=== PATIENT | male | born 1965 | race Caucasian/White ===

== ENCOUNTER 2025-01-14 18:12 | Emergency (ER) | payer MEDICAID ==
[~2025-01-14] VITALS: Ht 177.8 cm; Wt 81.8 kg
[2025-01-14 21:50] VITALS: PULSE 61; RESP 18; TEMP 98.8; O2SAT 96
[2025-01-14] MEDS ORDERED: AUG875T PO (22:09)
--- NOTE | 2025-01-14 22:09 | ED.PDOC ---
Eye-HPI HPI Comments C/O OF LEFT LOWER TOOTH PAIN, 07/05 REPORTS TOOTH BROKE "A WHILE BACK." Chief Complaint: Tooth Pain Time Seen by MD: 18:24 Reviewed Notes: Nurses Notes, Medications, Allergies Allergies: Coded Allergies: NO KNOWN ALLERGIES (Unverified , 12/05/15) Home Meds Active Scripts Amoxicillin & Pot Clavulanate (AUGMENTIN TABLET) 875 Mg Tb, 875 MG PO BID PRN for 6 Days, #12 TAB Prov:BERNADINE NAJERA [employer] 01/14/25 Information Source: Patient Mode of Arrival: Ambulatory Past Medical History PAST MEDICAL HISTORY: Denies Surgical History: Denies all surgeries Family History Family History: Reviewed,noncontributory to illness, Unknown Social History Smoker: Non-Smoker Alcohol: Denies ETOH Use Drugs: Denies Drug Use Constitutional: denies: chills, diaphoresis, fatigue, fever, malaise, sweats, weakness, others EENTM: reports: others (DENTAL PAIN); denies: blurred vision, double vision, ear bleeding, ear discharge, ear drainage, ear pain, ear ringing, eye pain, eye redness, hearing loss, mouth pain, mouth swelling, nasal discharge, nose bleeding, nose congestion, nose pain, photophobia, tearing, throat pain, throat swelling, voice changes Respiratory: denies: cough, hemoptysis, orthopnea, SOB at rest, shortness of breath, SOB with excertion, stridor, wheezing, others Cardiovascular: denies: chest pain, dizzy spells, diaphoresis, Dyspnea on exertion, edema, irregular heart beat, left arm pain, lightheadedness, palpitations, PND, syncope, others Gastrointestinal: denies: abdomen distended, abdominal pain, blood streaked bowels, constipated, diarrhea, dysphagia, difficulty swallowing, hematemesis, melena, nausea, poor appetite, poor fluid intake, rectal bleeding, rectal pain, vomiting, others Genitourinary: denies: burning, dysuria, flank pain, frequency, hematuria, inc ontinence, penile discharge, penile sore, pain, testicle pain, testicle swelling, urgency, others Neurological: denies: dizziness, fainting, headache, left sided numbness, left sided weakness, numbness, paresthesia, pre-existing deficit, right sided numbness, right sided weakness, seizure, speech problems, tingling, tremors, weakness, others Musculoskeletal: denies: back pain, gout, joint pain, joint swelling, muscle pain, muscle stiffness, neck pain, others Integumetry: denies: bruises, change in color, change in hair/nails, dryness, laceration, lesions, lumps, rash, wounds, others Allergic/Immunocompromised: denies: Difficulty Healing, Frequent Infections, Hives, Itching, others Hematologic/Lymphatic: denies: anemia, blood clots, easy bleeding, easy bruising, swollen glands, others Endocrine: denies: excessive hunger, excessive sweating, excessive thirst, excessive urination, flushing, intolerance to cold, intolerance to heat, unexplained weight gain, unexplained weight loss, others Psychiatric: denies: anxiety, bipolar disorder, depression, hopeless, panic disorder, schizophrenia, sleepless, suicidal, others Physical Exam General Appearance: No Apparent Distress, Normal HEENT: Pharynx Normal, TMs Normal, Other (LEFT LOWER JAW TOOTH NUMBER 46 NOTED CRACKED WITH MODERATE DECAY) Neck: Full Range of Motion, Non-Tender, Normal, Normal Inspection Respiratory: Lungs Clear, No Respiratory Distress, Normal Breath Sounds Cardiovascular: No Edema, No JVD, No Murmur, No Gallop, Normal Peripheral Puls es, Regular Rate/Rhythm Breast Exam: Deferred Gastrointestinal: No Organomegaly, Non Tender, No Pulsatile Mass, Normal Bowel Sounds, Soft Genitalia: Deferred Pelvic: Deferred Rectal: Deferred Extremities: Normal capillary refill, Normal inspection, Normal range of motion, Non-tender, No pedal edema Musculoskeletal : Apperance: Normal Neurologic: Alert, simonizer II-XII nml as Tested, No Motor Deficits, Normal Affect, Normal Mood, No Sensory Deficits Cerebellar Function: Normal Reflexes: Normal Skin: Dry, Normal Color, Warm Lymphatic: No Adenopathy Was a procedure done? Was a procedure done?: No EENT DIFF Eye: N/A Ear: Dental, Pharyngitis X-Ray, Labs, Meds, VS Vital Signs Date Time Temp Pulse Resp B/P (MAP) Pulse Ox O2 Delivery O2 Flow Rate FiO2 01/14/25 23:18 132/76 (94) 01/14/25 21:50 61 18 96 Room Air 01/14/25 21:50 98.8 61 18 162/83 (109) 96 98.8 01/14/25 18:54 98.8 58 18 151/75 (100) 99 98.8 Current Medications Medications (Trade) Dose Ordered Sig/Elliot Route Start Time Stop Time Status Last Admin Benzocaine (Hurricaine [place]) 1 spr ONCE ONCE MT 01/14/25 22:15 01/14/25 22:16 DC 01/14/25 22:56 Ketorolac Tromethamine (Toradol Injection) 60 mg ONCE ONCE IM 01/14/25 22:15 01/14/25 22:16 DC 01/14/25 22:56 Acetaminophen/ Hydrocodone Bitart ([place] 5/325MG Tab) 2 tab ONCE ONCE PO 01/14/25 22:45 01/14/25 22:46 DC 01/14/25 22:55 X-Ray, Labs, Meds, VS Comment Patient given Toradol 60 mg IM and Vicodin 10 mg p.o. reports improvement in pain requesting discharge at this time. Patient also was discharged with Hurricaine spray instructions given. Script antibiotics to patient's pharmacy on file advised to take medications as prescribed side effects discussed. Call dental and make an appointment for resolution. Return precautions given patient indicates understanding and agrees with discharge plan of care. Time of 1ST Reevaluation: 22:09 Reevaluation 1ST: Improved Patient Education/Counseling: Diagnosis, Treatment, Prognosis, Need For Follow Up Family Education/Counseling: Diagnosis, Treatment, Prognosis, Need For Follow Up Departure 1 Departure Time of Disposition: 22:08 Impression: Primary Impression: Dental infection Disposition: 01 HOME / SELF CARE / HOMELESS Condition: Stable e-Prescriptions Amoxicillin & Pot Clavulanate (AUGMENTIN TABLET) 875 Mg Tb 875 MG PO BID PRN for 6 Days, #12 TAB Prov: BERNADINE NAJERA 01/14/25 Discharged With: Significant Other Critical Care Note Critical Care Time?: No Stability Stability form required: No BERNADINE NAJERA Jan 14, 2025 22:09
[2025-01-14] MEDS ORDERED: OXYCODONE W/ ACETAMINOPHEN 5/325MG TABLET PO ONE (22:15)
[2025-01-14] MEDS: HYDROcodone-ACET 5/325MG TAB PO ONE (22:55)
[2025-01-14] MEDS: BENZOCAINE (DENTAL) 20 % SPRAY 60ML MT ONE (22:56)
[2025-01-14] MEDS: KETOROLAC TROMETH 60MG/2ML VIAL IM ONE (22:56)
[2025-01-14 23:18] VITALS: BP 132/76
== END 2025-01-14 23:22 | disposition home or self-care (01) ==
LOC: ER 18:12
DX: K04.7 Periapical abscess without sinus (principal)
CPT/HCPCS: 96372; 99283; J1885

== ENCOUNTER 2025-04-18 10:33 | Inpatient (IN) | payer MEDICAID ==
[~2025-04-18] VITALS: Ht 177.8 cm; Wt 77.5 kg
--- NOTE | 2025-04-18 10:48 | ED.PDOC ---
GI ASSESSMENT HPI Comments This is a 60 year old male accompanied by presenting to the ED with chief complaint of abdominal pain. Patient reports that he has been experiencing 4/10 epigastric abdominal pain with associated nausea and vomiting since this morning. Patient relays that he has vomited twice since this morning. Patient denies any diarrhea, dysuria, fever, chills, chest pain, or SOB. Time Seen by MD: 10:46 Reviewed Notes: Nurses Notes, Medications, Allergies Allergies: Coded Allergies: NO KNOWN ALLERGIES (Unverified , 12/05/15) Information Source: Patient, Spouse Mode of Arrival: Wheelchair Timing: Hours Duration: Since onset Prehospital treatment: None Quality: Aching Vomitus: Watery Stool: Normal Severity: Moderate Recent: None Recent Hx of: None Pain Location: Epigastric Modifying Factors: Nothing Associated sign and symptoms: Nausea, Vomiting, Abdominal Pain Past Medical History PAST MEDICAL HISTORY: Denies Surgical History: Denies all surgeries Family History Family History: Reviewed,noncontributory to illness, Family hx of DM Social History Smoker: Cigarettes Alcohol: Denies ETOH Use Drugs: Marijuana Lives In: Home Constitutional: denies: chills, diaphoresis, fatigue, fever, malaise, sweats, weakness, others EENTM: denies: blurred vision, double vision, ear bleeding, ear discharge, ear drainage, ear pain, ear ringing, eye pain, eye redness, hearing loss, mouth pain, mouth swelling, nasal discharge, nose bleeding, nose congestion, nose pain, photophobia, tearing, throat pain, throat swelling, voice changes, others Respiratory: denies: cough, hemoptysis, orthopnea, SOB at rest, shortness of breath, SOB with excertion, stridor, wheezing, others Cardiovascular: denies: chest pain, dizzy spells, diaphoresis, Dyspnea on exertion, edema, irregular heart beat, left arm pain, lightheadedness, palpitations, PND, syncope, others Gastrointestinal: reports: abdominal pain, nausea, vomiting; denies: abdomen distended, blood streaked bowels, constipated, diarrhea, dysphagia, difficulty swallowing, hematemesis, melena, poor appetite, poor fluid intake, rectal bleeding, rectal pain, others Genitourinary: denies: burning, dysuria, flank pain, frequency, hematuria, incontinence, penile discharge, penile sore, pain, testicle pain, testicle swelling, urgency, others Neurological: denies: dizziness, fainting, headache, left sided numbness, left sided weakness, numbness, paresthesia, pre-existing deficit, right sided numbness, right sided weakness, seizure, speech problems, tingling, tremors, weakness, others Musculoskeletal: denies: back pain, gout, joint pain, joint swelling, muscle p ain, muscle stiffness, neck pain, others Integumetry: denies: bruises, change in color, change in hair/nails, dryness, laceration, lesions, lumps, rash, wounds, others Allergic/Immunocompromised: denies: Difficulty Healing, Frequent Infections, Hives, Itching, others Hematologic/Lymphatic: denies: anemia, blood clots, easy bleeding, easy bruising, swollen glands, others Endocrine: denies: excessive hunger, excessive sweating, excessive thirst, excessive urination, flushing, intolerance to cold, intolerance to heat, unexplained weight gain, unexplained weight loss, others Psychiatric: denies: anxiety, bipolar disorder, depression, hopeless, panic disorder, schizophrenia, sleepless, suicidal, others All Other Systems: Reviewed and Negative Physical Exam General Appearance: Moderate Distress HEENT: Normal ENT Inspection, Pharynx Normal, TMs Normal Neck: Full Range of Motion, Non-Tender, Normal, Normal Inspection Respiratory: Chest Non-Tender, Lungs Clear, No Accessory Muscle Use, No Respiratory Distress, Normal Breath Sounds Cardiovascular: Bradycardia, No Edema, No JVD, No Murmur, No Gallop Breast Exam: Deferred Gastrointestinal: No Organomegaly, No Pulsatile Mass, Normal Bowel Sounds, RLQ, Soft, Tenderness Genitalia: Deferred Pelvic: Deferred Rectal: Deferred Extremities: No calf tenderness, Normal capillary refill, No pedal edema Musculoskeletal : Apperance: Normal Neurologic: Alert, peritoneal dialysis registered nurse II-XII nml as Tested, Motor Weakness, Normal Affect, Normal Mood, No Sensory Deficits Cerebellar Function: Normal Reflexes: Normal Skin: Dry, Pallor, Warm Lymphatic: No Adenopathy EKG EKG : Pulse Rate (adult): 46 [place]: RAD Cardiac Rhythm: SB Block: None Hypertrophy: None ST: Normal Was a procedure done? Was a procedure done?: No GI differential Dx Differential Diagnosis: Gastritis/PUD, Gastroenteritis, Pancreatitis, UTI, Electrolyte Imbalance, Food Poisoning X-Ray, Labs, Meds, VS Vital Signs Date Time Temp Pulse Resp B/P (MAP) Pulse Ox O2 Delivery O2 Flow Rate FiO2 04/18/25 11:39 46 04/18/25 11:23 46 04/18/25 10:43 98.0 46 18 174/82 (112) 100 98.0 Lab Test 04/18/25 11:03 04/18/25 10:56 Range/Units Urine Color Light-yellow Yellow Urine Clarity Clear Clear Urine pH 5.0 5.0-9.0 Urine Specific [place] 1.018 1.001-1.035 Urine Protein Negative Negative Urine Ketones Negative Negative Urine Blood Negative Negative /uL Urine Nitrite Negative Negative Urine Bilirubin Negative Negative Urine Urobilinogen Normal Negative mg/dL Urine Leukocyte Esterase Negative Negative /uL Urine RBC None seen 0 - 3 /hpf Urine Microscopic WBC < 1 0-3 /HPF Urine Squamous Epithelial Cells None seen <5 /hpf Urine Bacteria None seen None Seen /hpf Urine Mucus Few None Seen Urine Glucose Normal Normal mg/dL Urine Opiates Screen Neg NEGATIVE Urine Fentanyl Screen Neg NEGATIVE Urine Barbiturates Screen Neg NEGATIVE Urine Phencyclidine Screen Neg NEGATIVE Urine Amphetamines Screen Neg NEGATIVE Urine Benzodiazepines Screen Neg NEGATIVE Urine Cocaine Screen Neg NEGATIVE Urine Cannabinoids Screen Pos NEGATIVE White Blood Count 11.5 H 4.4-10.8 10^3/uL Red Blood Count 5.40 4.5-5.90 10^6/uL Hemoglobin 16.5 13.5-17.5 g/dL Hematocrit 48.6 41.0-53.0 % Mean Corpuscular Volume 90.0 80.0-100.0 fL Mean Corpuscular Hemoglobin 30.5 28.0-32.0 pg Mean Corpuscular Hemoglobin Concent 33.9 32.0-36.0 g/dL Red Cell Distribution Width 13.5 11.8-14.3 % Platelet Count 218 140-450 10^3/uL Mean Platelet Volume 8.3 6.9-10.8 fL Neutrophils (%) (Auto) 74.6 37.0-80.0 % Lymphocytes (%) (Auto) 16.3 10.0-50.0 % Monocytes (%) (Auto) 6.9 0.0-12.0 % Eosinophils (%) (Auto) 1.8 0.0-7.0 % Basophils (%) (Auto) 0.4 0.0-2.0 % Neutrophils # (Auto) 8.6 1.6-8.6 10 ^3/uL Lymphocytes # (Auto) 1.9 0.4-5.4 10 ^3/uL Monocytes # (Auto) 0.8 0-1.3 10 ^3/uL Eosinophils # (Auto) 0.2 0-0.8 10 ^3/uL Basophils # (Auto) 0 0-0.2 10 ^3/uL Nucleated Red Blood Cells 0.1 % Sodium Level 142 136-145 mmol/L Potassium Level 3.8 3.5-5.1 mmol/L Chloride Level 105 98-107 mmol/L Carbon Dioxide Level 28 20-31 mmol/L Anion Gap 9 5-15 Blood Urea Nitrogen 12 9-23 mg/dL Creatinine 0.91 0.700-1.30 mg/dL Glomerular Filtration Rate Calc 95 >90 mL/min BUN/Creatinine Ratio 13.2 10.0-20.0 Serum Glucose 117 H 74-106 mg/dL Calcium Level 10.7 H 8.7-10.4 mg/dL Troponin I High Sensitivity 3 L </=54 ng/L CBC shows an elevated white blood cell count of 11.5 The chemistry panel is within normal limits The troponin level is negative The patient's glucose is elevated at 117 The urine tox is positive for marijuana The urine test is negative for UTI At this time, the patient is being admitted to the hospitalist The CAT scan of the abdomen and pelvis shows: IMPRESSION: 1. Concentric wall thickening of the proximal transverse colon may reflect mild infectious / inflammatory colitis . At this time, the patient is being started on Flagyl 500 mg IV piggyback The patient is admitted Images Reviewed?: Images reviewed and evaluated by me Time of 1ST Reevaluation: 12:27 Reevaluation 1ST: Unchanged Patient Education/Counseling: Diagnosis, Treatment, Prognosis Family Education/Counseling: No Family Present Additional Information Reviewed patient's previous visit(s): 01/14/25 for dental infection The following tests were ordered, and results were reviewed by me: CBC, BMP, UDS, UA, Troponin, EKG, CT Abd/Pel Additional information was gathered from interviewing the following independent historian: I reviewed and agreed with the following test results read by other provider: CT Abd/Pel I discussed treatments and results with medical personnel and: PATIENT and Comprehensive systems review obtained and negative except for what is stated in the HPI. SEPSIS Sepsis Screen Physician Orders Troponin-I Hs (04/18/25 12:00) Ct Ab Pel Wo Con-No Oral Or Iv (04/18/25 10:46) Heplock Iv (04/18/25 10:46) Harp Regulator (04/18/25 10:46) Blood Pressure (04/18/25 10:46) Pulse Oximetry (04/18/25 10:46) Electrocardigram (04/18/25 10:46) Troponin-I Hs (04/18/25 13:46) Electrocardigram (04/18/25 11:46) Electrocardigram (04/18/25 13:46) Vital Signs Date Time Temp Pulse Resp B/P (MAP) Pulse Ox O2 Delivery O2 Flow Rate FiO2 04/18/25 11:39 46 04/18/25 11:23 46 04/18/25 10:43 98.0 46 18 174/82 (112) 100 98.0 Laboratory Tests Test 04/18/25 10:56 White Blood Count 11.5 10^3/uL (4.4-10.8) H Departure 1 Departure Time of Disposition: 12:28 Impression: Primary Impression: Intractable abdominal pain Additional Impression: Acute colitis Disposition: ADMITTED INPATIENT Admit to: Med Surg Condition: Fair Critical Care Note Critical Care Time?: No Stability Stability form required: Yes Unstable for transfer: ED Physician Assesment (Clinical assesment) Heart Score Heart Score: Heart Score Response (Comments) Value History N/A 0 EKG N/A 0 Age N/A 0 Risk Factors N/A 0 Troponin N/A 0 Total 0 I personally scribed for CHENTE REID MD ([email or web address]) on 04/18/25 at 10:48. Electronically submitted by Mario Davila ([email or web address]). I personally scribed for CHENTE REID MD ([email or web address]) on 04/18/25 at 10:49. Electronically submitted by Mario Davila ([email or web address]). I personally scribed for CHENTE REID MD ([email or web address]) on 04/18/25 at 11:39. Electronically submitted by Mario Davila ([email or web address]). CHENTE REID MD Apr 18, 2025 10:48
[2025-04-18 11:05] LABS: Urine Bacteria None Seen /hpf (None Seen)
[2025-04-18 11:21] LABS: Urine Blood Negative /uL (Negative); Urine Clarity Clear (Clear); Urine Color Light-Yellow (Yellow); Urine Mucus FEW (None Seen); Urine Protein, UAD Negative (Negative); Urine Specific Gravity 1.018 (1.001-1.035); Urine Squamous Epithelial Cell None Seen /hpf (<5); Urine Urobilinogen Normal (Negative)
[2025-04-18 11:24] LABS: Cannabinoid Screen, Urine Pos (NEGATIVE)
[2025-04-18 11:26] LABS: Urine WBC < 1 /HPF (0-3)
[2025-04-18 11:27] LABS: Amphetamine Screen, Urine Neg (NEGATIVE); Barbiturate Scree,Urine Neg (NEGATIVE); Benzodiazephine Screen, Urine Neg (NEGATIVE); Cocaine Screen, Urine Neg (NEGATIVE); Opiate Scree,Urine Neg (NEGATIVE); Phencyclidine Screen, Urine Neg (NEGATIVE)
[2025-04-18 11:33] LABS: Chloride 105 mmol/L (98-107); Potassium 3.8 mmol/L (3.5-5.1); Sodium 142 mmol/L (136-145)
[2025-04-18 11:34] LABS: Anion Gap 9 (5-15); Carbon Dioxide 28 mmol/L (20-31)
[2025-04-18 11:36] LABS: Basophils # (auto) 0 10 ^3/uL (0-0.2); Basophils % (auto) 0.4 % (0.0-2.0); Eosinophils # (auto) 0.2 10 ^3/uL (0-0.8); Eosinophils % (auto) 1.8 % (0.0-7.0); Hematocrit 48.6 % (41.0-53.0); Hemoglobin 16.5 g/dL (13.5-17.5); Lymphocytes # (auto) 1.9 10 ^3/uL (0.4-5.4); Lymphocytes % (auto) 16.3 % (10.0-50.0); Mean Corpuscular Hemoglobin 30.5 pg (28.0-32.0); Mean Corpuscular Hgb Conc. 33.9 g/dL (32.0-36.0); Monocytes # (auto) 0.8 10 ^3/uL (0-1.3); Monocytes % (auto) 6.9 % (0.0-12.0); Neutrophils # (auto) 8.6 10 ^3/uL (1.6-8.6); Neutrophils % (auto) 74.6 % (37.0-80.0); Nucleated Red Blood Cells % 0.1 %; Platelet Count (auto) 218 10^3/uL (140-450); Red Cell Distribution Width 13.5 % (11.8-14.3); White Blood Cell 11.5 10^3/uL (4.4-10.8)
[2025-04-18 11:39] LABS: Calcium 10.7 mg/dL (8.7-10.4)
[2025-04-18 11:40] LABS: BUN/Creatinine Ratio 13.2 (10.0-20.0); Blood Urea Nitrogen 12 mg/dL (9-23)
[2025-04-18 11:43] LABS: Glucose 117 mg/dL (74-106)
--- NOTE | 2025-04-18 11:50 | DVH ---
Exam: CT CT AB PEL WO CON-NO ORAL OR IV History: pain Comparison Study: None Technique: Multidetector spiral CT of the abdomen was performed from lung bases to pubic symphysis. Imaging was performed without IV contrast. Axial, coronal and sagittal multiplanar reformats were ob tained from the axial data set by the technologist. Radiation Dose : 1. Abdomen/Pelvis: CTDIvol 9.57 mGy, DLP 545.57 mGy*cm. Findings: Evaluation of solid organs is limited due to lack of intravenous contrast use. Lung Bases: No acute or significant lung base finding. Normal heart size. No pleural or pericardial effusion. Liver: The liver is normal in size. No focal lesions. Gallbladder and Biliary Tree: Unremarkable Spleen: Unremarkable Pancreas: The pancreas is grossly normal in appearance. Adrenal Glands: Unremarkable Kidneys: Kidneys are grossly normal without calculi or hydronephrosis. Bladder: Grossly unremarkable for degree of distention. Bowel: The stomach is grossly normal in appearance. Concentric wall thickening of the proximal transv erse colon may reflect mild infectious / inflammatory colitis . The appendix is not visualized; howev er, no secondary findings of acute appendicitis identified. Ascites: Absent Lymphadenopathy: No mesenteric, retroperitoneal or periportal lymphadenopathy. Abdominal Wall and Mesentery: Unremarkable. Vasculature: The visualized abdominal aorta is normal in size and caliber. Evaluation of abdominal a nd pelvic vessels is limited due to lack of intravenous contrast. Pelvic Organs: Unremarkable Musculoskeletal: No aggressive focal bony lesions, acute fractures or dislocation. IMPRESSION: 1. Concentric wall thickening of the proximal transverse colon may reflect mild infectious / inflamma tory colitis . Radiation optimization: All CT scans at this facility use at least one of these dose optimization valeria hniques: automated exposure control mA and/or kV adjustment per patient size (includes targeted exam s where dose is matched to clinical indication) or iterative reconstruction.
[2025-04-18] MEDS ORDERED: ACETAMINOPHEN 325 MG TAB PO PRN (15:00)
[2025-04-18] MEDS ORDERED: SODIUM CHLORIDE 0.9% 1,000 ML IV SCH (15:00)
[2025-04-18] MEDS ORDERED: DOCUSATE SOD 100 MG CAP PO PRN (15:00)
--- NOTE | 2025-04-18 16:37 | DVHHP2 ---
History of Present Illness Reason for Visit: Acute colitis History of Present Illness The patient is a 60-year-old male who denies past medical history presented to [facility] [place] with complaint of acute abdominal pain. Patient reports he has been experiencing epigastric abdominal pain for the past two days, associated with nausea, vomiting, getting worse today that prompted this visit. Patient was seen and evaluated in the ED, laboratory data shows WBC 11.5, platelets 218, sodium 142, potassium 3.8, BUN 12, creatinine 0.91, glucose 117, calcium 10.7, troponin 3, blood pressure 174/82 trending down to 115/73, heart rate 46, temperature 98.0 F, O2 saturation 99% on room air. Abdomen/pelvis CT revealing concentric wall thickening of the proximal transverse colon may reflect mild infectious/inflammatory colitis. Patient was started on IV antibiotic regimen Rocephin, please see medication orders section in the computer. On my assessment, patient denied chest pain, no headache, no dizziness, no diaphoresis, no shortness of breath, no abdominal pain, nausea, or vomiting at this moment, no fever, no chills. Patient was admitted for further evaluation and medical management. Past Medical History Denies past medical history Past Surgical History Denies all surgeries Family History Reviewed, noncontributory to the management of this case. Past Social History The patient lives at home, smokes cigarettes, denies alcohol use, uses marijuana. Review of Systems Constitutional: No: Fever, Chills, Sweats, Weakness, Malaise, Other Eyes: No: Pain, Vision change, Conjunctivae inflammation, Eyelid inflammation, Other, Redness ENT: No: Ear pain, Ear discharge, Nose pain, Nose discharge, Nose congestion, Mouth pain, Mouth swelling, Throat pain, Throat swelling, Other Respiratory: No: Cough, Dry, Shortness of breath, SOB with excertion, Wheezing, Hemoptysis, Pleuritic Pain, Sputum, Wheezing, Other Cardiovascular: No: Chest Pain, Palpitations, Orthopnea, Paroxysmal Noc. Dyspnea, Edema, Lt Headedness, Other Gastrointestinal: Nausea, Vomiting, Abdominal Pain; No: Diarrhea, Constipation, Melena, Hematochezia, Other Genitourinary: No Dysuria, No Frequency, No Incontinence, No Hematuria, No Retention, No Other Musculoskeletal: No: other, neck pain, shoulder pain, arm pain, back pain, hand pain, leg pain, foot pain Skin: No: Rash, Lesions, Jaundice, Bruising, Other Neurological: No: Weakness, Numbness, Incoordination, Change in speech, Confusion, Seizures, Other Allergies: Coded Allergies: NO KNOWN ALLERGIES (Unverified , 12/05/15) Medications Current Medications Medications Dose Ordered Sig/Elliot Route Start Time Stop Time Status Last Admin Dose Admin Ceftriaxone Sodium 50 ml @ 100 mls/hr DAILY@09 IV 04/19/25 09:00 Metronidazole 100 ml @ 100 mls/hr Q8HR IV 04/18/25 22:00 Sodium Chloride 1,000 ml @ 60 mls/hr [id number] IV 04/18/25 15:00 Acetaminophen/ Hydrocodone Bitart 1 tab Q4HP PRN PO 04/18/25 15:00 Ondansetron HCl 4 mg Q4HP PRN IV 04/18/25 15:00 Docusate Sodium 100 mg BIDPRN PRN PO 04/18/25 15:00 Acetaminophen 650 mg Q6HP PRN PO 04/18/25 15:00 Exam Vital Signs Vital Signs Date Time Temp Pulse Resp B/P (MAP) Pulse Ox O2 Delivery O2 Flow Rate FiO2 04/18/25 15:32 97.9 40 115/73 (87) 100 97.9 04/18/25 10:43 18 General Appearance: Alert, Oriented X3, Cooperative, No acute distress HEENT: Atraumatic, PERRLA, EOMI, Mucous membr. moist/pink Respiratory: Clear to auscultation, Normal air movement Cardiovascular: Regular rate, Normal S1, Normal S2, No murmurs Abdominal: Normal bowel sounds, Soft, No hepatospenomegaly, No masses, Other (Reports tenderness) Extremities: No clubbing, No cyanosis, No edema, Normal pulses, No te nderness/swelling Skin: No rashes, No breakdown, No significant lesion Neuro: Normal gait, Normal speech, Strength at 5/5 X4 ext, Normal tone, Sensation intact, Cranial nerves 3-12 NL, Reflexes 2+ Psych/Mental Status: Mental status NL, Mood NL Labs/Xrays Labs Test 04/18/25 13:13 04/18/25 11:03 04/18/25 10:56 Range/Units Troponin I High Sensitivity < 3 L </=54 ng/L Urine Color Light-yellow Yellow Urine Clarity Clear Clear Urine pH 5.0 5.0-9.0 Urine Specific [place] 1.018 1.001-1.035 Urine Protein Negative Negative Urine Ketones Negative Negative Urine Blood Negative Negative /uL Urine Nitrite Negative Negative Urine Bilirubin Negative Negative Urine Urobilinogen Normal Negative mg/dL Urine Leukocyte Esterase Negative Negative /uL Urine RBC None seen 0 - 3 /hpf Urine Microscopic WBC < 1 0-3 /HPF Urine Squamous Epithelial Cells None seen <5 /hpf Urine Bacteria None seen None Seen /hpf Urine Mucus Few None Seen Urine Glucose Normal Normal mg/dL Urine Opiates Screen Neg NEGATIVE Urine Fentanyl Screen Neg NEGATIVE Urine Barbiturates Screen Neg NEGATIVE Urine Phencyclidine Screen Neg NEGATIVE Urine Amphetamines Screen Neg NEGATIVE Urine Benzodiazepines Screen Neg NEGATIVE Urine Cocaine Screen Neg NEGATIVE Urine Cannabinoids Screen Pos NEGATIVE White Blood Count 11.5 H 4.4-10.8 10^3/uL Red Blood Count 5.40 4.5-5.90 10^6/uL Hemoglobin 16.5 13.5-17.5 g/dL Hematocrit 48.6 41.0-53.0 % Mean Corpuscular Volume 90.0 80.0-100.0 fL Mean Corpuscular Hemoglobin 30.5 28.0-32.0 pg Mean Corpuscular Hemoglobin Concent 33.9 32.0-36.0 g/dL Red Cell Distribution Width 13.5 11.8-14.3 % Platelet Count 218 140-450 10^3/uL Mean Platelet Volume 8.3 6.9-10.8 fL Neutrophils (%) (Auto) 74.6 37.0-80.0 % Lymphocytes (%) (Auto) 16.3 10.0-50.0 % Monocytes (%) (Auto) 6.9 0.0-12.0 % Eosinophils (%) (Auto) 1.8 0.0-7.0 % Basophils (%) (Auto) 0.4 0.0-2.0 % Neutrophils # (Auto) 8.6 1.6-8.6 10 ^3/uL Lymphocytes # (Auto) 1.9 0.4-5.4 10 ^3/uL Monocytes # (Auto) 0.8 0-1.3 10 ^3/uL Eosinophils # (Auto) 0.2 0-0.8 10 ^3/uL Basophils # (Auto) 0 0-0.2 10 ^3/uL Nucleated Red Blood Cells 0.1 % Sodium Level 142 136-145 mmol/L Potassium Level 3.8 3.5-5.1 mmol/L Chloride Level 105 98-107 mmol/L Carbon Dioxide Level 28 20-31 mmol/L Anion Gap 9 5-15 Blood Urea Nitrogen 12 9-23 mg/dL Creatinine 0.91 0.700-1.30 mg/dL Glomerular Filtration Rate Calc 95 >90 mL/min BUN/Creatinine Ratio 13.2 10.0-20.0 Serum Glucose 117 H 74-106 mg/dL Calcium Level 10.7 H 8.7-10.4 mg/dL PATIENT: JEREMI CARRREA ACCT: [id number] UNIT: [id number] : 1965 LOC: ER ROOM / BED: / AGE / SEX: 60 / M ADM STATUS: REG ER SERVICE 1046 ORDERING PHYSICIAN: CHENTE REID MD PROCEDURE(s): ABPL - CT AB PEL WO CON-NO ORAL OR IV REASON: pain ORDER NUMBER(s): [id number], ACCESSION NUMBER(s): [id number] Exam: CT CT AB PEL WO CON-NO ORAL OR IV History: pain Comparison Study: None Technique: Multidetector spiral CT of the abdomen was performed from lung bases to pubic symphysis. Imaging was performed without IV contrast. Axial, coronal and sagittal multiplanar reformats were obtained from the axial data set by the technologist. Radiation Dose: 1. Abdomen/Pelvis: CTDIvol 9.57 mGy, DLP 545.57 mGy*cm. Findings: Evaluation of solid organs is limited due to lack of intravenous contrast use. Lung Bases: No acute or significant lung base finding. Normal heart size. No pleural or pericardial effusion. Liver: The liver is normal in size. No focal lesions. Gallbladder and Biliary Tree: Unremarkable Spleen: Unremarkable Pancreas: The pancreas is grossly normal in appearance. Adrenal Glands: Unremarkable Kidneys: Kidneys are grossly normal without calculi or hydronephrosis. Bladder: Grossly unremarkable for degree of distention. Bowel: The stomach is grossly normal in appearance. Concentric wall thickening of the proximal transverse colon may reflect mild infectious/inflammatory colitis. The appendix is not visualized; however, no secondary findings of acute appendicitis identified. Ascites: Absent Lymphadenopathy: No mesenteric, retroperitoneal or periportal lymphadenopathy. Abdominal Wall and Mesentery: Unremarkable. Vasculature: The visualized abdominal aorta is normal in size and caliber. Evaluation of abdominal and pelvic vessels is limited due to lack of intravenous contrast. Pelvic Organs: Unremarkable Musculoskeletal: No aggressive focal bony lesions, acute fractures or dislocation. IMPRESSION: 1. Concentric wall thickening of the proximal transverse colon may reflect mild infectious/inflammatory colitis . Assessment/Plan Assessment/Plan Acute colitis Intractable abdominal pain Leukocytosis, unspecified Plan 1. Admit to med surge unit 2. Breathing treatment 3. Pain control management 4. IV antibiotic management 5. Management of fluids and electrolytes 6. Consultation for hospitalist 7. Diagnostic test abdomen/pelvis CT 8. DVT prophylaxis on SCDs 9. Repeat labs CBC, CMP in a.m. 10. Continue with current medical management 11. Treatment plan discussed with patient and RN. Patient verbalized understanding. Plan discussed with: Patient, Other (RN) My Orders Orders - TORIN ROGERS DNP Procedure Category Date Status Time Ceftriaxone 1gm/50ml PHA 04/19/25 In Process D5w (Rocephin) 09:00 Metronidazole PHA 04/18/25 In Process 500mg/100ml (Flagyl 22:00 Allergies AMEE 04/18/25 In Process 14:54 Code Status CODE 04/18/25 Transmitted 14:54 Sodium Chloride 0.9% PHA 04/18/25 In Process 15:00 Oxygen Per Hour RT 04/18/25 Transmitted 14:54 Hydrocodone-Acet PHA 04/18/25 In Process 5/325mg Tab ([place] 15:00 Ondansetron Hcl PHA 04/18/25 In Process (Zofran) 15:00 Docusate Sodium PHA 04/18/25 In Process Capsule (Colace 15:00 Complete Blood Count LAB 04/19/25 Verified 04:00 Comprehensive LAB 04/19/25 Verified Metabolic Panel 04:00 Condition: Serious AMEE 04/18/25 In Process 14:54 Acetaminophen Tablet PHA 04/18/25 In Process (Tylenol Tablet) 15:00 Clear Liq Diet DIET 04/18/25 Transmitted Dinner Bedrest With Bathroom AMEE 04/18/25 In Process Privileg 14:54 Sequential AMEE 04/18/25 In Process Compression Device Admit ADMIT 04/18/25 Transmitted 16:34 Nitroglycerin PHA 04/18/25 Transmitted Sublingual (Ntrostat 16:45 Morphine Sulfate PHA 04/18/25 Transmitted Injection 16:45 Notify Md Of Changes AMEE 04/18/25 Transmitted From Base 16:34 Emergency Dysrhythmia AMEE 04/18/25 Transmitted Protocol 16:34 Oxygen By Nasal RT 04/18/25 Transmitted Cannula 16:34 Problem List: (1) Acute colitis (2) Intractable abdominal pain (3) Leukocytosis, unspecified Date of Service: Apr 18, 2025 Billing Provider: TORIN ROGERS DNP Common Visit Codes: [id number] INP/OBS CARE (HIGH) TORIN ROGERS DNP Apr 18, 2025 16:37
[2025-04-18] MEDS ORDERED: NITROGLYCERIN 0.4 MG SL TAB SL PRN (16:45)
[2025-04-18] MEDS ORDERED: MORPHINE SULFATE INJ 2 MG/ml SYRG IV PRN (16:45)
[2025-04-18] MEDS: PANTOPRAZOLE 40 MG/10 ML VIAL INJ IV ONE (18:53)
[2025-04-18] MEDS: SOD CHL 0.45% 1,000 ML IV SCH (19:14)
[2025-04-18] MEDS: SODIUM CHLORIDE 0.9% 500 ML IVB ONE (19:20)
[2025-04-18] MEDS: ONDANSETRON HCL 4 MG/2 ML VIAL IV PRN (19:24)
[2025-04-18] MEDS: MORPHINE SULFATE 4 MG/ML SYR/VIAL IV ONE (19:25)
[2025-04-18] MEDS: cefTRIAXone 1GM/50ML D5W 50 ML IV ONE (19:25)
[2025-04-18] MEDS ORDERED: metroNIDAZOLE 500MG/100ML 100 ML IV SCH (22:00)
[2025-04-18 23:11] VITALS: RESP 16; O2SAT 94
[2025-04-18 23:47] VITALS: BP 116/68; PULSE 58; RESP 18; TEMP 98.3; O2SAT 95
[2025-04-19] VITALS (8 sets, daily range): BP systolic 99–156; BP diastolic 57–84; PULSE 51–58; RESP 18–19; TEMP 97.6–98.6; O2SAT 95–100
[2025-04-19] MEDS ORDERED: METH40TA13 PO (00:03)
[2025-04-19] MEDS: HYDROcodone-ACET 5/325MG TAB PO PRN (03:52)
[2025-04-19 06:20] LABS: Basophils # (auto) 0 10 ^3/uL (0-0.2); Basophils % (auto) 0.2 % (0.0-2.0); Eosinophils # (auto) 0.1 10 ^3/uL (0-0.8); Eosinophils % (auto) 0.9 % (0.0-7.0); Hematocrit 44.1 % (41.0-53.0); Hemoglobin 15.3 g/dL (13.5-17.5); Lymphocytes # (auto) 2.1 10 ^3/uL (0.4-5.4); Lymphocytes % (auto) 23.7 % (10.0-50.0); Mean Corpuscular Hemoglobin 30.7 pg (28.0-32.0); Mean Corpuscular Hgb Conc. 34.6 g/dL (32.0-36.0); Mean Corpuscular Volume 88.6 fL (80.0-100.0); Monocytes # (auto) 0.7 10 ^3/uL (0-1.3); Neutrophils % (auto) 67.2 % (37.0-80.0); Nucleated Red Blood Cells % 0.1 %; Platelet Count (auto) 194 10^3/uL (140-450); Red Blood Cells 4.98 10^6/uL (4.5-5.90); Red Cell Distribution Width 13.5 % (11.8-14.3); White Blood Cell 8.9 10^3/uL (4.4-10.8)
[2025-04-19 06:56] LABS: Alanine Aminotransferase 16 U/L (7-40); Albumin 4.4 g/dL (3.2-4.8); Alkaline Phosphatase 57 U/L (46-116); Anion Gap 8 (5-15); Aspartate Aminotransferase 23 U/L (<34); BUN/Creatinine Ratio 14.5 (10.0-20.0); Blood Urea Nitrogen 12 mg/dL (9-23); Calcium 9.4 mg/dL (8.7-10.4); Carbon Dioxide 28 mmol/L (20-31); Chloride 103 mmol/L (98-107); Glucose 102 mg/dL (74-106); Potassium 3.6 mmol/L (3.5-5.1); Sodium 139 mmol/L (136-145); Total Protein 6.9 g/dL (5.7-8.2)
[2025-04-19 06:57] LABS: Bilirubin, Total 0.8 mg/dL (0.2-1.0)
[2025-04-19] MEDS: cefTRIAXone 1GM/50ML D5W 50 ML IV SCH (08:24)
--- NOTE | 2025-04-19 11:54 | DVHPN2 ---
Reviewed: Care Plan, H&P, Labs, Medications, Previous Orders, Radiology Changes from previous H/P or p: No Changes Eyes: No Pain, No Vision change, No Conjunctivae inflammation, No Eyelid inflammation, No Other, No Redness ENT: No Ear pain, No Ear discharge, No Nose pain, No Nose discharge, No Nose congestion, No Mouth pain, No Mouth swelling, No Throat pain, No Throat swelling, No Other Cardiovascular: No Chest Pain, No Palpitations, No Orthopnea, No Paroxysmal Noc. Dyspnea, No Edema, No Lt Headedness, No Other Respiratory: No Cough, No Dry, No Shortness of breath, No SOB with excertion, No Wheezing, No Hemoptysis, No Pleuritic Pain, No Sputum, No Other Gastrointestinal: Nausea, Vomiting, Abdominal Pain; No Diarrhea, No Constipation, No Melena, No Hematochezia, No Other Genitourinary: No Dysuria, No Frequency, No Incontinence, No Hematuria, No Retention, No Other Musculoskeletal: No other, No neck pain, No shoulder pain, No arm pain, No back pain, No hand pain, No leg pain, No foot pain Skin: No Rash, No Lesions, No Jaundice, No Bruising, No Other Objective Vitals Vital Signs Date Time Temp Pulse Resp B/P (MAP) Pulse Ox O2 Delivery O2 Flow Rate FiO2 04/19/25 09:00 98.4 51 18 135/78 (97) 97 98.4 04/19/25 08:00 Room Air* 0 21 Intake/Output Intake and Output 04/19/25 07:00 Intake Total 550 ml Output Total 0 ml Balance 550 ml Intake Oral 0 ml IV Total 550 ml Output Urine Total 0 ml Medications Current Medications Medications Dose Ordered Sig/Elliot Route Start Time Stop Time Status Last Admin Dose Admin Ceftriaxone Sodium 50 ml @ 100 mls/hr DAILY@09 IV 04/19/25 09:00 04/19/25 08:24 100 MLS/HR Acetaminophen/ Hydrocodone Bitart 1 tab Q4HP PRN PO 04/18/25 15:00 04/19/25 03:52 1 TAB Ondansetron HCl 4 mg Q4HP PRN IV 04/18/25 15:00 04/18/25 19:24 4 MG Docusate Sodium 100 mg BIDPRN PRN PO 04/18/25 15:00 Acetaminophen 650 mg Q6HP PRN PO 04/18/25 15:00 Nitroglycerin 0.4 mg Q5MINP PRN SL 04/18/25 16:45 Morphine Sulfate 2 mg Q30M PRN IV 04/18/25 16:45 Sodium Chloride 1,000 ml @ 60 mls/hr [id number] IV 04/18/25 18:15 04/19/25 08:24 60 MLS/HR Laboratory Results Laboratory Tests 04/19/25 05:48 Chemistry Test 04/19/25 05:48 Albumin 4.4 g/dL (3.2-4.8) Calcium Level 9.4 mg/dL (8.7-10.4) Total Protein 6.9 g/dL (5.7-8.2) LFT Test 04/19/25 05:48 Alanine Aminotransferase (ALT) 16 U/L (7-40) Alkaline Phosphatase 57 U/L (46-116) Aspartate Amino Transferase (AST) 23 U/L (<34) Total Bilirubin 0.8 mg/dL (0.2-1.0) Urinalysis Test 04/18/25 11:03 Urine Color Light-yellow (Yellow) Urine Clarity Clear (Clear) Urine pH 5.0 (5.0-9.0) Urine Specific [place] 1.018 (1.001-1.035) Urine Protein Negative (Negative) Urine Ketones Negative (Negative) Urine Blood Negative /uL (Negative) Urine Nitrite Negative (Negative) Urine Bilirubin Negative (Negative) Urine Urobilinogen Normal mg/dL (Negative) Urine Leukocyte Esterase Negative /uL (Negative) Urine RBC None seen /hpf (0 - 3) Urine Microscopic WBC < 1 /HPF (0-3) Urine Squamous Epithelial Cells None seen /hpf (<5) Urine Bacteria None seen /hpf (None Seen) Urine Mucus Few (None Seen) Urine Glucose Normal mg/dL (Normal) Labs and/or images reviewed: Labs reviewed by me, Image(s) reviewed by me Assessment/Plan Assessment/Plan Acute abdominal pain with nausea and vomiting Acute enterocolitis: Rocephin Flagyl pain medications Acute dehydration: IV fluids Marijuana abuse: Counseled Plan discussed with: Patient My Orders Orders - BLAIR MALAVE MD Procedure Category Date Status Time Metronidazole Ivpb PHA 04/19/25 Verified Flagyl 14:00 Date of Service: Apr 19, 2025 Billing Provider: BLAIR MALAVE MD Common Visit Codes: [id number] INP/OBS CARE(HIGH) BLAIR MALAVE MD Apr 19, 2025 11:54
[2025-04-19] MEDS: ONDANSETRON HCL 4 MG/2 ML VIAL IV PRN (12:50)
--- NOTE | 2025-04-19 14:24 | ECG ---
[facility] Test Date: 2025-04-18 Test Time: 11:23:54 Pat Name: JEREMI LI Department: ER Room: [address] [place] [address] Gender: M [employer] Loader: IGGY : 1965 Requested By: CHENTE REID Order Number: [id number] Reading MD: King Bruce Measurements Intervals [place] Rate: 46 P: 84 AR: 167 QRS: 92 QRSD: 92 T: 75 QT: 498 QTc: 436 Interpretive Statements Sinus bradycardia Right axis deviation Baseline wander in lead(s) II,III,aVF Electronically Signed On 04-22-2025 19:51:46 PDT by King Bruce Please click the below link to view image of tracing.
[2025-04-19] MEDS: metroNIDAZOLE 500MG/100ML 100 ML IV SCH (14:58)
[2025-04-20 01:00] VITALS: BP 136/70; PULSE 50; RESP 17; TEMP 98.1; O2SAT 97
[2025-04-20 05:00] VITALS: BP 147/72; PULSE 58; RESP 17; TEMP 98.2; O2SAT 98
[2025-04-20 08:48] VITALS: BP 145/88; PULSE 52; RESP 17; TEMP 98.5; O2SAT 99
[2025-04-20] MEDS ORDERED: METR-344 PO (10:31)
[2025-04-20] MEDS ORDERED: ZOFR4T PO (10:31)
[2025-04-20] MEDS ORDERED: LEVO500T91 PO (10:31)
--- NOTE | 2025-04-20 10:32 | DVHPN2 ---
Reviewed: Care Plan, H&P, Labs, Medications, Previous Orders, Radiology Changes from previous H/P or p: No Changes Eyes: No Pain, No Vision change, No Conjunctivae inflammation, No Eyelid inflammation, No Other, No Redness ENT: No Ear pain, No Ear discharge, No Nose pain, No Nose discharge, No Nose congestion, No Mouth pain, No Mouth swelling, No Throat pain, No Throat swelling, No Other Cardiovascular: No Chest Pain, No Palpitations, No Orthopnea, No Paroxysmal Noc. Dyspnea, No Edema, No Lt Headedness, No Other Respiratory: No Cough, No Dry, No Shortness of breath, No SOB with excertion, No Wheezing, No Hemoptysis, No Pleuritic Pain, No Sputum, No Other Gastrointestinal: Nausea, Vomiting, Abdominal Pain; No Diarrhea, No Constipation, No Melena, No Hematochezia, No Other Genitourinary: No Dysuria, No Frequency, No Incontinence, No Hematuria, No Retention, No Other Musculoskeletal: No other, No neck pain, No shoulder pain, No arm pain, No back pain, No hand pain, No leg pain, No foot pain Skin: No Rash, No Lesions, No Jaundice, No Bruising, No Other Objective Vitals Vital Signs Date Time Temp Pulse Resp B/P (MAP) Pulse Ox O2 Delivery O2 Flow Rate FiO2 04/20/25 08:48 98.5 52 17 145/88 (107) 99 98.5 04/20/25 07:45 Room Air* 0 21 Intake/Output Intake and Output 04/20/25 07:00 Intake Total 3103 ml Balance 3103 ml Intake Oral 1853 ml IV Total 1250 ml # Voids 14 Medications Current Medications Medications Dose Ordered Sig/Elliot Route Start Time Stop Time Status Last Admin Dose Admin Ceftriaxone Sodium 50 ml @ 100 mls/hr DAILY@09 IV 04/19/25 09:00 04/20/25 08:49 100 MLS/HR Acetaminophen/ Hydrocodone Bitart 1 tab Q4HP PRN PO 04/18/25 15:00 04/19/25 03:52 1 TAB Docusate Sodium 100 mg BIDPRN PRN PO 04/18/25 15:00 Acetaminophen 650 mg Q6HP PRN PO 04/18/25 15:00 Nitroglycerin 0.4 mg Q5MINP PRN SL 04/18/25 16:45 Morphine Sulfate 2 mg Q30M PRN IV 04/18/25 16:45 Sodium Chloride 1,000 ml @ 60 mls/hr [id number] IV 04/18/25 18:15 04/20/25 06:55 60 MLS/HR Metronidazole 100 ml @ 100 mls/hr Q8HR IV 04/19/25 14:00 04/20/25 04:57 100 MLS/HR Patient Own Medication 1 DAILY PO 04/19/25 12:00 04/19/25 13:43 1 Ondansetron HCl 4 mg Q4HPRN PRN IV 04/19/25 12:45 04/20/25 10:11 4 MG Laboratory Results Laboratory Tests 04/19/25 05:48 Urinalysis Test 04/18/25 11:03 Urine Color Light-yellow (Yellow) Urine Clarity Clear (Clear) Urine pH 5.0 (5.0-9.0) Urine Specific [place] 1.018 (1.001-1.035) Urine Protein Negative (Negative) Urine Ketones Negative (Negative) Urine Blood Negative /uL (Negative) Urine Nitrite Negative (Negative) Urine Bilirubin Negative (Negative) Urine Urobilinogen Normal mg/dL (Negative) Urine Leukocyte Esterase Negative /uL (Negative) Urine RBC None seen /hpf (0 - 3) Urine Microscopic WBC < 1 /HPF (0-3) Urine Squamous Epithelial Cells None seen /hpf (<5) Urine Bacteria None seen /hpf (None Seen) Urine Mucus Few (None Seen) Urine Glucose Normal mg/dL (Normal) Labs and/or images reviewed: Labs reviewed by me, Image(s) reviewed by me Assessment/Plan Assessment/Plan Acute abdominal pain with nausea and vomiting Acute enterocolitis: Rocephin Flagyl pain medications Acute dehydration: IV fluids Marijuana abuse: Counseled Heroin addiction: Methadone Patient feels much better and wants to go home Plan discussed with: Patient, Other (RN) My Orders Orders - BLAIR MALAVE MD Procedure Category Date Status Time Metronidazole PHA 04/19/25 In Process 500mg/100ml (Flagyl 14:00 Patients Own PHA 04/19/25 In Process Medication 12:00 Ondansetron Hcl PHA 04/19/25 In Process (Zofran) 12:45 Date of Service: Apr 20, 2025 Billing Provider: BLAIR MALAVE MD Common Visit Codes: [id number] INP/OBS CARE(HIGH) BLAIR MALAVE MD Apr 20, 2025 10:32
--- NOTE | 2025-04-20 10:35 | DVHDS2 ---
Discharge Summary Date of Admission Apr 18, 2025 at 16:34 Date of Discharge: Apr 20, 2025 Admitting Diagnosis Abdominal pain Wounds: None Labs/Diagnostic Data: Laboratory Results Test 04/19/25 05:48 04/18/25 13:13 04/18/25 11:03 White Blood Count 8.9 10^3/uL (4.4-10.8) Red Blood Count 4.98 10^6/uL (4.5-5.90) Hemoglobin 15.3 g/dL (13.5-17.5) Hematocrit 44.1 % (41.0-53.0) Mean Corpuscular Volume 88.6 fL (80.0-100.0) Mean Corpuscular Hemoglobin 30.7 pg (28.0-32.0) Mean Corpuscular Hemoglobin Concent 34.6 g/dL (32.0-36.0) Red Cell Distribution Width 13.5 % (11.8-14.3) Platelet Count 194 10^3/uL (140-450) Mean Platelet Volume 7.9 fL (6.9-10.8) Neutrophils (%) (Auto) 67.2 % (37.0-80.0) Lymphocytes (%) (Auto) 23.7 % (10.0-50.0) Monocytes (%) (Auto) 8.0 % (0.0-12.0) Eosinophils (%) (Auto) 0.9 % (0.0-7.0) Basophils (%) (Auto) 0.2 % (0.0-2.0) Neutrophils # (Auto) 6.0 10 ^3/uL (1.6-8.6) Lymphocytes # (Auto) 2.1 10 ^3/uL (0.4-5.4) Monocytes # (Auto) 0.7 10 ^3/uL (0-1.3) Eosinophils # (Auto) 0.1 10 ^3/uL (0-0.8) Basophils # (Auto) 0 10 ^3/uL (0-0.2) Nucleated Red Blood Cells 0.1 % Sodium Level 139 mmol/L (136-145) Potassium Level 3.6 mmol/L (3.5-5.1) Chloride Level 103 mmol/L (98-107) Carbon Dioxide Level 28 mmol/L (20-31) Anion Gap 8 (5-15) Blood Urea Nitrogen 12 mg/dL (9-23) Creatinine 0.83 mg/dL (0.700-1.30) Glomerular Filtration Rate Calc 99 mL/min (>90) BUN/Creatinine Ratio 14.5 (10.0-20.0) Serum Glucose 102 mg/dL (74-106) Calcium Level 9.4 mg/dL (8.7-10.4) Total Bilirubin 0.8 mg/dL (0.2-1.0) Aspartate Amino Transferase (AST) 23 U/L (<34) Alanine Aminotransferase (ALT) 16 U/L (7-40) Alkaline Phosphatase 57 U/L (46-116) Total Protein 6.9 g/dL (5.7-8.2) Albumin 4.4 g/dL (3.2-4.8) Troponin I High Sensitivity < 3 ng/L (</=54) Urine Color Light-yellow (Yellow) Urine Clarity Clear (Clear) Urine pH 5.0 (5.0-9.0) Urine Specific [place] 1.018 (1.001-1.035) Urine Protein Negative (Negative) Urine Ketones Negative (Negative) Urine Blood Negative /uL (Negative) Urine Nitrite Negative (Negative) Urine Bilirubin Negative (Negative) Urine Urobilinogen Normal mg/dL (Negative) Urine Leukocyte Esterase Negative /uL (Negative) Urine RBC None seen /hpf (0 - 3) Urine Microscopic WBC < 1 /HPF (0-3) Urine Squamous Epithelial Cells None seen /hpf (<5) Urine Bacteria None seen /hpf (None Seen) Urine Mucus Few (None Seen) Urine Glucose Normal mg/dL (Normal) Urine Opiates Screen Neg (NEGATIVE) Urine Fentanyl Screen Neg (NEGATIVE) Urine Barbiturates Screen Neg (NEGATIVE) Urine Phencyclidine Screen Neg (NEGATIVE) Urine Amphetamines Screen Neg (NEGATIVE) Urine Benzodiazepines Screen Neg (NEGATIVE) Urine Cocaine Screen Neg (NEGATIVE) Urine Cannabinoids Screen Pos (NEGATIVE) Other Laboratory Tests 04/19/25 05:48 Brief Hx & Hospital Course: 60-year-old male with a history of marijuana abuse on methadone for heroin addiction came in complaining of abdominal pain. CT abdomen pelvis showed acute enterocolitis treated with Rocephin Flagyl pain medication nausea medication. Improved feeling much better afebrile stable vital signs one wants to go home. Discharged home on Levaquin Flagyl and Zofran Consults/Reason for consult None Operations or Procedures CT abdomen pelvis without contrast Condition at Discharge: Fair Final Diagnosis/Problems List Acute abdominal pain with nausea and vomiting Acute enterocolitis: Rocephin Flagyl pain medications Acute dehydration: IV fluids Marijuana abuse: Counseled Heroin addiction: Methadone Discharge Disposition: Home Discharge Instruct/Medications Diet: Regular Activity: Light activity Follow Up/Referral: Use medications as prescribed Follow up with your primary Dr Medications: Levaquin Flagyl Zofran Transmitted to [facility]'s 39 (Time Taken for discharge summary 39 minutes) Discharge Statement: "Patient was advised to return to the ER or call 911 if any headaches, dizziness, shortness of breath, chest pain, abdominal pain, bleeding, fevers, or worsening of medical condition. Patient was counseled about treatment plan, medications, possible side effects, patientverbalized understanding. All questions were answered to the best of my ability. This discharge took greater then 30 minutes in planning, reviewing documentation, counseling the patient, and discussing with other team members." ASSESSMENT ASSESSMENT Assessment Acute abdominal pain with nausea and vomiting Acute enterocolitis: Rocephin Flagyl pain medications Acute dehydration: IV fluids Marijuana abuse: Counseled Heroin addiction: Methadone Date of Service: Apr 20, 2025 Billing Provider: BLAIR MALAVE MD Common Visit Codes: [id number] DISCH DAY >30min BLAIR MALAVE MD Apr 20, 2025 10:35
[2025-04-20 13:00] VITALS: BP 137/79; PULSE 48; RESP 17; TEMP 98.8; O2SAT 99
== END 2025-04-20 14:58 | disposition home or self-care (01) | DRG 248 ==
LOC: ER 10:33 → OVERFLOW 16:34 → EAST 04-19 03:22
PROVIDERS: ADMIT Family Medicine; ATTEND Family Medicine
DX: A04.9 Bacterial intestinal infection, unspecified (principal); E86.0 Dehydration; F11.20 Opioid dependence, uncomplicated; F12.10 Cannabis abuse, uncomplicated; F17.210 Nicotine dependence, cigarettes, uncomplicated; Z83.3 Family history of diabetes mellitus
CPT/HCPCS: 36415; 74176; 80048; 80053; 80307; 81001; 84484; 85025; 93005; 96374; 96375; G0378; J2405; J2470; J3490

== ENCOUNTER 2025-07-04 12:44 | Emergency (ER) | payer MEDICAID ==
[~2025-07-04] VITALS: Ht 177.8 cm; Wt 81.3 kg
[~2025-07-04 12:44] MED LIST: LEVO500T91 PO; METH40TA13 PO; METR-344 PO; ZOFR4T PO
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
[2025-07-04] MEDS: LIDOCAINE W/ EPINEPHRINE 1% 20ML VIAL SC ONE (13:23)
[2025-07-04 13:29] VITALS: BP 139/89; PULSE 69; RESP 17; TEMP 98; O2SAT 98
== END 2025-07-04 14:37 | disposition home or self-care (01) ==
LOC: ER 12:44
DX: S01.81XA Laceration without foreign body of other part of head, initial encounter (principal); F17.210 Nicotine dependence, cigarettes, uncomplicated; Z79.899 Other long term (current) drug therapy; W19.XXXA Unspecified fall, initial encounter; Y93.89 Activity, other specified; Y92.89 Other specified places as the place of occurrence of the external cause; Y99.8 Other external cause status
CPT/HCPCS: 12013

== ENCOUNTER 2025-10-04 10:13 | Emergency (ER) | payer MEDICAID ==
[~2025-10-04] VITALS: Ht 177.8 cm; Wt 80.2 kg
[2025-10-04 10:16] VITALS: TEMP 97.7
[2025-10-04] MEDS ORDERED: AZIT500T66 PO (12:26)
[2025-10-04] MEDS ORDERED: PROM1SOL4 PO (12:26)
--- NOTE | 2025-10-04 12:26 | ED.PDOC ---
SOB-HPI HPI Comments A 60 YEAR OLD MALE PRESENTS TO THE ED WITH COMPLAINT OF COUGH. PATIENT REPORTS THAT HE HAS BEEN EXPERIENCING A COUGH WITH ASSOCIATED SOB AND THROAT SWELLING FOR THE PAST 3 DAYS. PATIENT RELAYS THAT HIS THROAT FEELS BETTER NOW. PATIENT NOTES HE QUIT SMOKING A MONTH AGO. PATIENT DENIES FEVER, CHILLS, CHEST PAIN, ABDOMINAL PAIN, NAUSEA, VOMITING, HEADACHE, OR OTHER COMPLAINTS. NO OTHER SYMPTOMS OR MODIFYING FACTORS AT THIS TIME. PATIENT IS ALERT, ORIENTED X 4, AND HAS STEADY GAIT. Chief Complaint: Cough Time Seen by MD: 10:20 Primary Care Provider: UNKNOWN Reviewed notes: Nurses Notes, Medications, Allergies Information Source: Patient Mode of Arrival: Ambulatory Severity: Mild, Moderate Timing: Days Duration: Since onset, Days Context: Spontaneous Onset PE Risk Factors: None History of: Recent URI Modifying Factors: Nothing Associated Signs and Symptoms: Cough, Nasal Congestion If cough with SOB: Productive Past Medical History PAST MEDICAL HISTORY: HTN Surgical History: Denies all surgeries Family History Family History: Reviewed,noncontributory to illness, Unknown Social History Smoker: Cigarettes Alcohol: Unknown Drugs: Unknown Lives In: Home Constitutional: denies: chills, diaphoresis, fatigue, fever, malaise, sweats, weakness, others EENTM: reports: nose congestion; denies: blurred vision, double vision, ear bleeding, ear discharge, ear drainage, ear pain, ear ringing, eye pain, eye redness, hearing loss, mouth pain, mouth swelling, nasal discharge, nose bleeding, nose pain, photophobia, tearing, throat pain, throat swelling, voice changes, others Respiratory: reports: cough; denies: hemoptysis, orthopnea, SOB at rest, shortness of breath, SOB with excertion, stridor, wheezing, others Cardiovascular: denies: chest pain, dizzy spells, diaphoresis, Dyspnea on exertion, edema, irregular heart beat, left arm pain, lightheadedness, palpitations, PND, syncope, others Gastrointestinal: denies: abdomen distended, abdominal pain, blood streaked bowels, constipated, diarrhea, dysphagia, difficulty swallowing, hematemesis, melena, nausea, poor appetite, poor fluid intake, rectal bleeding, rectal pain, vomiting, others Genitourinary: denies: burning, dysuria, flank pain, frequency, hematuria, incontinence, penile discharge, penile sore, pain, testicle pain, testicle swelling, urgency, others Neurological: denies: dizziness, fainting, headache, left sided numbness, left sided weakness, numbness, paresthesia, pre-existing deficit, right sided numbness, right sided weakness, seizure, speech problems, tingling, tremors, weakness, others Musculoskeletal: denies: back pain, gout, joint pain, joint swelling, muscle pain, muscle stiffness, neck pain, others Integumetry: denies: bruises, change in color, change in hair/nails, dryness, laceration, lesions, lumps, rash, wounds, others Hematologic/Lymphatic: denies: anemia, blood clots, easy bleeding, easy bruis ing, swollen glands, others Endocrine: denies: excessive hunger, excessive sweating, excessive thirst, exc essive urination, flushing, intolerance to cold, intolerance to heat, unexplained weight gain, unexplained weight loss, others Psychiatric: denies: anxiety, bipolar disorder, depression, hopeless, panic disorder, schizophrenia, sleepless, suicidal, others All Other Systems: Reviewed and Negative Physical Exam General Appearance: No Apparent Distress, Normal HEENT: Normal ENT Inspection, PERRL/EOMI, Pharyngeal Erythema, TMs Normal Neck: Full Range of Motion, Non-Tender, Normal, Normal Inspection Respiratory: Chest Non-Tender, Expiration, No Accessory Muscle Use, No Respiratory Distress, Rhonchi Cardiovascular: No Edema, No JVD, No Murmur, No Gallop, Normal Peripheral Pulses, Regular Rate/Rhythm Breast Exam: Deferred Gastrointestinal: No Organomegaly, Non Tender, No Pulsatile Mass, Normal Bowel Sounds, Soft Genitalia: Deferred Pelvic: Deferred Rectal: Deferred Extremities: No calf tenderness, Normal capillary refill, Normal inspection, Normal range of motion, Non-tender, No pedal edema Musculoskeletal : Apperance: Normal Neurologic: Alert, sand mixer II-XII nml as Tested, No Motor Deficits, Normal Affect, Normal Mood, No Sensory Deficits Cerebellar Function: Normal Reflexes: Normal Skin: Dry, Normal Color, Warm Peripheral Pulses: 2+ carotid (R), 2+ carotid (L) Lymphatic: No Adenopathy Was a procedure done? Was a procedure done?: No Differential Dx Differential Diagnosis: Bronchitis, Pneumonia X-Ray, Labs, Meds, VS Vital Signs Date Time Temp Pulse Resp B/P (MAP) Pulse Ox O2 Delivery O2 Flow Rate FiO2 10/04/25 12:29 16 96 Room Air* 0 21 10/04/25 12:28 56 16 134/86 (102) 96 10/04/25 10:16 97.7 71 18 144/84 96 97.7 X-Ray, Labs, Meds, VS Comment EXTERNAL MEDICAL RECORDS REVIEWED: [NONE] INDEPENDENT HISTORIANS: [NONE] SOCIAL DETERMINANTS OF HEALTH: [NONE] LABS ORDERED: NONE REVIEWED AND INTERPRETED RESULTS: CHEST XR IMAGING ORDERED: CHEST XR INTERPRETED BY ME. NO ACUTE FINDINGS. NO PNEUMONIA. NO CONSOLIDATIONS. NO INFILTRATES. PENDING RADIOLOGIST REPORT. TREATMENTS ORDERED: NONE PROCEDURES PERFORMED: NONE CRITICAL CARE TIME: NONE I HAVE DISCUSSED THE PATIENT WITH THE ATTENDING PHYSICIAN AND HE AGREES WITH THE PATIENT'S PLAN OF CARE AND DISPOSITION. BASED ON HISTORY OF PRESENT ILLNESS, AND PHYSICAL EXAM, PATIENT WILL BE DISCHARGED HOME. DISCUSSED PLAN FOR DISCHARGE HOME WITH RX [PROMETHAZINE, AZITHROMYCIN]. MEDICATION WARNINGS GIVEN. SHARED DECISION MAKING: DISCUSSED WITH PATIENT THAT THEIR WORKUP WAS NORMAL. PATIENT INSTRUCTED TO FOLLOW UP WITH PRIMARY CARE PROVIDER IN 1-2 DAYS FOR RE- EVALUATION OF SYMPTOMS. PATIENT VERBALIZES UNDERSTANDING TO RETURN TO ED FOR NEW OR WORSENING SYMPTOMS OR IF FOLLOW UP WITH PCP CANNOT BE OBTAINED. PATIENT FEELS COMFORTABLE GOING HOME AT THIS TIME. ALL QUESTIONS ADDRESSED AT TIME OF DISCHARGE. Images Reviewed?: Images reviewed and evaluated by me Time of 1ST Reevaluation: 12:23 Reevaluation 1ST: Improved Patient Education/Counseling: Diagnosis, Treatment, Need For Follow Up Family Education/Counseling: Diagnosis, Treatment, No Family Present Medical Screening: No EMC Exist At This Time SEPSIS Sepsis Screen Date sepsis recognized/suspect: Oct 04, 2025 Time Sepsis recognized/suspect: 1018 Recent Procedure: No On Antibiotic Therapy: No Respiratory Rate >20: No Heart Rate >90: No Temp<36 C (96.8 F) or >38.3 C: No SBP <90 or MAP <65 mmHG: No New Acute Mental Status Change: No Is the patient on CPAP, BIPAP,: No Physician Orders Chest Two Views Routine (10/04/25 12:02) Vital Signs Date Time Temp Pulse Resp B/P (MAP) Pulse Ox O2 Delivery O2 Flow Rate FiO2 10/04/25 12:29 16 96 Room Air* 0 21 10/04/25 12:28 56 16 134/86 (102) 96 10/04/25 10:16 97.7 71 18 144/84 96 97.7 Departure 1 Departure Time of Disposition: 12:43 Impression: Primary Impression: Acute bronchitis Qualified Codes: J20.9 - Acute bronchitis, unspecified Disposition: HOME / SELF CARE / HOMELESS Condition: Stable Additional Instructions: F/U PCP IN 2 DAYS RECHECK. IF CONDITION BECOME WORSE, RETURN TO ED [facility]. e-Prescriptions Promethazine-Dm (Promethazine Dm 6.25-15 mg/5Ml) 1 Diana Diana 5 ML PO TID, #160 ML Prov: MIGUEL BAEZ 10/04/25 Azithromycin (Azithromycin) 500 Mg Tab 1 TAB PO DAILY, #5 TAB Prov: MIGUEL BAEZ 10/04/25 Discharged With: Self Critical Care Note Critical Care Time?: No Stability Stability form required: No Heart Score Heart Score: Heart Score Response (Comments) Value History N/A 0 EKG N/A 0 Age N/A 0 Risk Factors N/A 0 Troponin N/A 0 Total 0 I personally scribed for MIGUEL BAEZ ([email or web address]) on 10/04/25 at 12:42. Electronically submitted by Mario Davila ([email or web address]). I personally scribed for MIGUEL BAEZ ([email or web address]) on 10/04/25 at 12:43. Electronically submitted by Mario Davila ([email or web address]). MIGUEL BAEZ Oct 04, 2025 12:26
[2025-10-04 12:28] VITALS: BP 134/86; PULSE 56
[2025-10-04 12:29] VITALS: RESP 16; O2SAT 96
--- NOTE | 2025-10-04 12:46 | DVH ---
XY CHEST TWO VIEWS ROUTINE CLINICAL HISTORY: COUGH COMPARISON: None TECHNIQUE: Frontal and lateral view of the chest was obtained FINDINGS: Lines and Tubes: None Lungs: No focal consolidation. Pleura: No effusion. No pneumothorax. Cardiomediastinal contours: Unremarkable Bones: No acute osseous abnormality. IMPRESSION: 1. No acute cardiopulmonary disease.
== END 2025-10-04 12:35 | disposition home or self-care (01) ==
LOC: ER 10:13
DX: J20.9 Acute bronchitis, unspecified (principal); F17.210 Nicotine dependence, cigarettes, uncomplicated; I10 Essential (primary) hypertension; Z79.899 Other long term (current) drug therapy
CPT/HCPCS: 71046

== ENCOUNTER 2025-10-14 10:29 | Inpatient (IN) | payer MEDICAID ==
[~2025-10-14] VITALS: Ht 177.8 cm; Wt 84.4 kg
[~2025-10-14 10:29] MED LIST changes: +AZIT500T66 PO; +PROM1SOL4 PO
--- NOTE | 2025-10-14 12:01 | ED.PDOC ---
GI ASSESSMENT HPI Comments This is a 60 year old male presenting to the ED with chief complaint of abdominal pain. Patient reports that he has been experiencing diffuse abdominal pain with associated nausea and vomiting for the past 3 days. Patient relays that he has had similar symptoms in the past and has been admitted for similar complaints. Patient denies any diarrhea, fever, chills, hematemesis, or melena. Chief Complaint: Abdominal Pain Time Seen by MD: 11:49 Primary Care Provider: UNKNOWN Reviewed Notes: Nurses Notes, Medications, Allergies Allergies: Coded Allergies: NO KNOWN ALLERGIES (Unverified , 12/05/15) Home Meds Active Scripts Promethazine-Dm (Promethazine Dm 6.25-15 mg/5Ml) 1 Diana Diana, 5 ML PO TID, #160 ML Prov:MIGUEL BAEZ 10/04/25 Azithromycin (Azithromycin) 500 Mg Tab, 1 TAB PO DAILY, #5 TAB Prov:MIGUEL BAEZ 10/04/25 Ondansetron Odt 4MG Tab (ZOFRAN PO) 4 Mg Tb, 4 MG PO QID PRN, #20 TAB ODT TAB-DISSOLVE IN MOUTH, THEN SWALLOW Prov:BLAIR MALAVE MD 04/20/25 Metronidazole (Flagyl) 500 Mg Tab, 1 TAB PO TID, #30 TAB Prov:BLAIR MALAVE MD 04/20/25 Levofloxacin Hemihydrate (LEVAQUIN 500 MG) 500 Mg Tab, 1 TAB PO DAILY, #7 TAB Prov:BLAIR MALAVE MD 04/20/25 Reported Medications Methadone Hcl (Methadone Hcl) 40 Mg Tab, 65 MG PO, TAB 04/19/25 Information Source: Patient Mode of Arrival: Ambulatory Timing: Days Duration: Since onset Prehospital treatment: None Quality: Aching Vomitus: Watery Stool: Normal Severity: Moderate Recent: None Recent Hx of: None Pain Location: Diffuse Modifying Factors: Nothing Associated sign and symptoms: Nausea, Vomiting, Abdominal Pain Past Medical History PAST MEDICAL HISTORY: HTN Surgical History: Denies all surgeries Family History Family History: Reviewed,noncontributory to illness, Unknown Social History Smoker: Cigarettes Alcohol: Unknown Drugs: Unknown Lives In: Home Constitutional: denies: chills, diaphoresis, fatigue, fever, malaise, sweats, weakness, others EENTM: denies: blurred vision, double vision, ear bleeding, ear discharge, ear drainage, ear pain, ear ringing, eye pain, eye redness, hearing loss, mouth pain, mouth swelling, nasal discharge, nose bleeding, nose congestion, nose pain, photophobia, tearing, throat pain, throat swelling, voice changes, others Respiratory: denies: cough, hemoptysis, orthopnea, SOB at rest, shortness of breath, SOB with excertion, stridor, wheezing, others Cardiovascular: denies: chest pain, dizzy spells, diaphoresis, Dyspnea on exertion, edema, irregular heart beat, left arm pain, lightheadedness, palpitations, PND, syncope, others Gastrointestinal: reports: abdominal pain, nausea, vomiting; denies: abdomen distended, blood streaked bowels, constipated, diarrhea, dysphagia, difficulty swallowing, hematemesis, melena, poor appetite, poor fluid intake, rectal bleeding, rectal pain, others Genitourinary: denies: burning, dysuria, flank pain, frequency, hematuria, incontinence, penile discharge, penile sore, pain, testicle pain, testicle swelling, urgency, others Neurological: denies: dizziness, fainting, headache, left sided numbness, left sided weakness, numbness, paresthesia, pre-existing deficit, right sided numbness, right sided weakness, seizure, speech problems, tingling, tremors, weakness, others Musculoskeletal: denies: back pain, gout, joint pain, joint swelling, muscle pain, muscle stiffness, neck pain, others Integumetry: denies: bruises, change in color, change in hair/nails, dryness, laceration, lesions, lumps, rash, wounds, others Allergic/Immunocompromised: denies: Difficulty Healing, Frequent Infections, Hives, Itching, others Hematologic/Lymphatic: denies: anemia, blood clots, easy bleeding, easy bruising, swollen glands, others Endocrine: denies: excessive hunger, excessive sweating, excessive thirst, excessive urination, flushing, intolerance to cold, intolerance to heat, unexplained weight gain, unexplained weight loss, others Psychiatric: denies: anxiety, bipolar disorder, depression, hopeless, panic disorder, schizophrenia, sleepless, suicidal, others All Other Systems: Reviewed and Negative Physical Exam General Appearance: No Apparent Distress, Normal HEENT: Normal ENT Inspection, Pharynx Normal, TMs Normal Neck: Full Range of Motion, Non-Tender, Normal, Normal Inspection Respiratory: Chest Non-Tender, Lungs Clear, No Accessory Muscle Use, No Respiratory Distress, Normal Breath Sounds Cardiovascular: No Edema, No JVD, No Murmur, No Gallop, Normal Peripheral Pulses, Regular Rate/Rhythm Breast Exam: Deferred Gastrointestinal: No Organomegaly, No Pulsatile Mass, Normal Bowel Sounds, Soft, Tenderness (Diffuse abdominal tenderness) Genitalia: Deferred Pelvic: Deferred Rectal: Deferred Extremities: No calf tenderness, Normal capillary refill, Normal inspection, N ormal range of motion, Non-tender, No pedal edema Musculoskeletal : Apperance: Normal Neurologic: Alert, director private II-XII nml as Tested, No Motor Deficits, Normal Affect, Normal Mood, No Sensory Deficits Cerebellar Function: Normal Reflexes: Normal Skin: Dry, Normal Color, Warm Lymphatic: No Adenopathy Was a procedure done? Was a procedure done?: No GI differential Dx Differential Diagnosis: Gastritis/PUD, Gastroenteritis, GI hemorrhage, Urinary Obstruction, UTI, Dehydration X-Ray, Labs, Meds, VS Vital Signs Date Time Temp Pulse Resp B/P (MAP) Pulse Ox O2 Delivery O2 Flow Rate FiO2 10/14/25 15:00 98.2 72 17 156/91 (112) 97 98.2 10/14/25 13:12 60 16 160/91 10/14/25 13:00 98.2 60 14 160/91 (114) 98 98.2 10/14/25 10:32 98.3 51 12 168/80 98 98.3 Lab Test 10/14/25 12:19 10/14/25 12:18 Range/Units Urine Color Yellow Yellow Urine Clarity Clear Clear Urine pH 5.5 5.0-9.0 Urine Specific [place] > 1.050 H 1.001-1.035 Urine Protein Trace H Negative Urine Ketones Trace Negative Urine Blood Negative Negative /uL Urine Nitrite Negative Negative Urine Bilirubin Negative Negative Urine Urobilinogen Normal Negative mg/dL Urine Leukocyte Esterase Negative Negative /uL Urine RBC 1 0 - 3 /hpf Urine Microscopic WBC < 1 0-3 /HPF Urine Squamous Epithelial Cells Few <5 /hpf Urine Bacteria None seen None Seen /hpf Urine Mucus Few None Seen Urine Glucose Normal Normal mg/dL White Blood Count 11.0 H 4.4-10.8 10^3/uL Red Blood Count 5.41 4.5-5.90 10^6/uL Hemoglobin 16.1 13.5-17.5 g/dL Hematocrit 48.6 41.0-53.0 % Mean Corpuscular Volume 89.7 80.0-100.0 fL Mean Corpuscular Hemoglobin 29.7 28.0-32.0 pg Mean Corpuscular Hemoglobin Concent 33.1 32.0-36.0 g/dL Red Cell Distribution Width 13.2 11.8-14.3 % Platelet Count 276 140-450 10^3/uL Mean Platelet Volume 7.3 6.9-10.8 fL Neutrophils (%) (Auto) 85.8 H 37.0-80.0 % Lymphocytes (%) (Auto) 10.1 10.0-50.0 % Monocytes (%) (Auto) 3.6 0.0-12.0 % Eosinophils (%) (Auto) 0.2 0.0-7.0 % Basophils (%) (Auto) 0.3 0.0-2.0 % Neutrophils # (Auto) 9.5 H 1.6-8.6 10 ^3/uL Lymphocytes # (Auto) 1.1 0.4-5.4 10 ^3/uL Monocytes # (Auto) 0.4 0-1.3 10 ^3/uL Eosinophils # (Auto) 0 0-0.8 10 ^3/uL Basophils # (Auto) 0 0-0.2 10 ^3/uL Nucleated Red Blood Cells 0.1 % Sodium Level 141 136-145 mmol/L Potassium Level 4.1 3.5-5.1 mmol/L Chloride Level 103 98-107 mmol/L Carbon Dioxide Level 26 20-31 mmol/L Anion Gap 12 5-15 Blood Urea Nitrogen 7 L 9-23 mg/dL Creatinine 0.96 0.700-1.30 mg/dL Glomerular Filtration Rate Calc 89 >90 mL/min BUN/Creatinine Ratio 7.3 L 10.0-20.0 Serum Glucose 151 H 74-106 mg/dL Calcium Level 10.3 8.7-10.4 mg/dL Current Medications Medications (Trade) Dose Ordered Sig/Elliot Route Start Time Stop Time Status Last Admin Sodium Chloride 1,000 ml @ 1,000 mls/hr Q1H ONCE IV 10/14/25 12:15 10/14/25 13:14 DC 12/20/25 13:12 Morphine Sulfate 4 mg ONCE ONCE IV 10/14/25 12:15 10/14/25 12:16 DC 10/14/25 13:12 Ondansetron HCl (Zofran) 4 mg ONCE ONCE IV 10/14/25 12:15 10/14/25 12:16 DC 10/14/25 13:10 Time of 1ST Reevaluation: 12:48 Reevaluation 1ST: Unchanged Patient Education/Counseling: Diagnosis, Treatment Family Education/Counseling: No Family Present SEPSIS Sepsis Screen Date sepsis recognized/suspect: Oct 14, 2025 Time Sepsis recognized/suspect: 103 Recent Procedure: No On Antibiotic Therapy: No Respiratory Rate >20: No Heart Rate >90: No Temp<36 C (96.8 F) or >38.3 C: No SBP <90 or MAP <65 mmHG: No New Acute Mental Status Change: No Is the patient on CPAP, BIPAP,: No Physician Orders Ct Ab Pel With Iv Con Only (10/14/25 12:08) Vital Signs Date Time Temp Pulse Resp B/P (MAP) Pulse Ox O2 Delivery O2 Flow Rate FiO2 10/14/25 15:00 98.2 72 17 156/91 (112) 97 98.2 10/14/25 13:12 60 16 160/91 10/14/25 13:00 98.2 60 14 160/91 (114) 98 98.2 10/14/25 10:32 98.3 51 12 168/80 98 98.3 Laboratory Tests Test 10/14/25 12:18 White Blood Count 11.0 10^3/uL (4.4-10.8) H Medications Medications Dose Ordered Sig/Elliot Route Start Time Stop Time Status Last Admin Dose Admin Morphine Sulfate 4 mg ONCE ONCE IV 10/14/25 12:15 10/14/25 12:16 DC 10/14/25 13:12 Ondansetron HCl 4 mg ONCE ONCE IV 10/14/25 12:15 10/14/25 12:16 DC 10/14/25 13:10 Sodium Chloride 1,000 ml @ 1,000 mls/hr Q1H ONCE IV 10/14/25 12:15 10/14/25 13:14 DC 10/14/25 13:12 Departure 1 Departure Time of Disposition: 16:01 (Patient presented with abdominal pain that was concerning for possible appendicits, gastritis, cholecystitis, colitis, gastroenteritis, sbo, or orther possible surgical emergency. Data: 1. I ordered and reviewed the result of at least 3 labs including a CBC, BMP, and Urinalysis. 2. I independently interpreted the following tests: CT Abdomen and Pelvis is concerning for constipation.Risk:This patient has a high risk of morbidity due to further diagnostic testing or treatment and may suffer from an acute abdominal process disorder. Workup reveals intractable abdominal pain and patient should be admitted for further workup. and possible expert consultation. ) Impression: Primary Impression: Intractable abdominal pain Additional Impression: Constipation Disposition: ADMITTED INPATIENT Admit to: Med Surg Condition: Guarded Critical Care Note Critical Care Time?: No Stability Stability form required: No Heart Score Heart Score: Heart Score Response (Comments) Value History N/A 0 EKG N/A 0 Age N/A 0 Risk Factors N/A 0 Troponin N/A 0 Total 0 I personally scribed for KELLY REID MD ([email or web address]) on 10/14/25 at 12:01. Electronically submitted by Mario Davila ([email or web address]). KELLY REID MD Oct 14, 2025 12:01
[2025-10-14 12:45] LABS: Hematocrit 48.6 % (41.0-53.0); Hemoglobin 16.1 g/dL (13.5-17.5); Mean Corpuscular Hemoglobin 29.7 pg (28.0-32.0); Mean Corpuscular Volume 89.7 fL (80.0-100.0); Nucleated Red Blood Cells % 0.1 %
[2025-10-14 12:48] LABS: Chloride 103 mmol/L (98-107); Potassium 4.1 mmol/L (3.5-5.1); Sodium 141 mmol/L (136-145)
[2025-10-14 12:49] LABS: Anion Gap 12 (5-15); Calcium 10.3 mg/dL (8.7-10.4); Carbon Dioxide 26 mmol/L (20-31)
[2025-10-14 12:54] LABS: BUN/Creatinine Ratio 7.3 (10.0-20.0)
[2025-10-14 12:55] LABS: Blood Urea Nitrogen 7 mg/dL (9-23); Glucose 151 mg/dL (74-106)
[2025-10-14] MEDS: ONDANSETRON HCL 4 MG/2 ML VIAL IV ONE (13:10)
[2025-10-14] MEDS: MORPHINE SULFATE 4 MG/ML SYR/VIAL IV ONE (13:12)
[2025-10-14] MEDS: SODIUM CHLORIDE 0.9% 1,000 ML IV ONE (13:12)
--- NOTE | 2025-10-14 14:51 | DVH ---
EXAM: CT CT AB PEL WITH IV CON ONLY History: abdominal pain Comparison Study: None Contrast: Type of contrast: Isovue-300 Contrast injected: 100 mL Contrast wasted: 0 TECHNIQUE: A digital customer service technician image was obtained. During the uneventful, intravenous administration of contrast material, multislice data acquisition was obtained through the abdomen and pelvis. The data set was subsequently reconstructed into axial images. Images were reviewed on a work station using a combination of axial and multiplanar using a variety of window levels and settings. Radiation Dose Information: CT Dose: CTDI volume is 13.74 mGy. Dose-length product is 629.08 mGy*cm FINDINGS: Lung Bases: No acute or significant lung base finding. Normal heart size. No pleural or pericardial effusion. Liver: The liver is normal in size. No focal lesions. Normal hepatic vascular enhancement. Gallbladder and Biliary Tree: Unremarkable Spleen: Unremarkable Pancreas: The pancreas is normal in appearance without focal lesions or abnormal enhancement. Adrenal Glands: Unremarkable Kidneys: Kidneys demonstrate normal symmetric enhancement without focal lesions, calculi or hydronephrosis. Bladder: Unremarkable Bowel: The stomach is grossly normal in appearance. Small bowel and colon are normal in caliber and distribution. The appendix is not visualized; however, no secondary findings of acute appendicitis identified. Diverticulosis noted. There appears to be a moderate to large amount of retained stool in the colon. Ascites: Absent Lymphadenopathy: No mesenteric, retroperitoneal or periportal lymphadenopathy. Abdominal Wall and Mesentery: Unremarkable. Vasculature: The visualized abdominal aorta is normal in size and caliber. Abdominal and pelvic vessels demonstrate normal enhancement. Pelvic Organs: Unremarkable Musculoskeletal: There is a partially calcified mild disc protrusion at L4-5. Soft tissues: Unremarkable. IMPRESSION: 1. No acute abnormality in the abdomen or pelvis. 2. Retained stool in the colon. 3. Diverticulosis 4. Partially calcified mild disc protrusion at L4-[address] scans at this medical facility are performed using dose modulation techniques as appropriate to a performed exam including the following: Automated exposure control was utilized; adjustment of the MA and/or KV according to patient size; and use of iterative reconstruction technique.
[2025-10-14 15:56] LABS: Urine Protein, UAD TRACE (Negative)
[2025-10-14] MEDS ORDERED: ACETAMINOPHEN 325 MG TAB PO PRN (16:30)
[2025-10-14] MEDS ORDERED: HYDROcodone-ACET 5/325MG TAB PO PRN (16:30)
[2025-10-14] MEDS ORDERED: DOCUSATE SOD 100 MG CAP PO PRN (16:30)
[2025-10-14] MEDS: PANTOPRAZOLE 40 MG/10 ML VIAL INJ IV ONE (16:45)
--- NOTE | 2025-10-14 17:33 | DVHHP2 ---
History of Present Illness Reason for Visit: Intractable abdominal pain History of Present Illness The patient is a 60-year-old male with past medical history of hypertension and prediabetes who presented to [facility] ED with complaint of abdominal pain. Patient reports that he has been experiencing diffuse abdominal pain rating 7/10 numeric scale, associated with nausea and vomiting for the past 3 days. Patient reports that he has had similar symptoms in the past and has been admitted for similar complaints. Patient was seen and evaluated in the ED, laboratory data shows WBC 11.0, platelets 276, sodium 141, potassium 4.1, BUN 7, creatinine 0.96, GFR 89, glucose 151, hemoglobin A1c 5.8, calcium 10.3, blood pressure 156/91, heart rate 72, temperature 98.2 F, O2 saturation 97% on room air. Abdomen/pelvis CT revealing diverticulosis, retained stools in the colon, partially calcified mild disc protrusion at L4-5, no acute abnormality. Please s ee medication orders section in the computer. On my assessment, patient denied chest pain, no dizziness, headache, diaphoresis, shortness of breaths, no abdominal pain, nausea or vomiting at this moment, fever, no chills. Patient was admitted for further evaluation and medical management. Past Medical History HTN Past Surgical History Denies all surgeries Family History Reviewed, noncontributory to the management of this case. Past Social History The patient lives at home, denies smoking, alcohol or illicit drugs abuse. Review of Systems Constitutional: Yes: Weakness; No: Fever, Chills, Sweats, Malaise, Other Eyes: No: Pain, Vision change, Conjunctivae inflammation, Eyelid inflammation, Other, Redness ENT: No: Ear pain, Ear discharge, Nose pain, Nose discharge, Nose congestion, Mouth pain, Mouth swelling, Throat pain, Throat swelling, Other Respiratory: No: Cough, Dry, Shortness of breath, SOB with excertion, Wheezing, Hemoptysis, Pleuritic Pain, Sputum, Wheezing, Other Cardiovascular: No: Chest Pain, Palpitations, Orthopnea, Paroxysmal Noc. Dyspnea, Edema, Lt Headedness, Other Gastrointestinal: Nausea, Vomiting, Abdominal Pain; No: Diarrhea, Constipation, Melena, Hematochezia, Other Genitourinary: No Dysuria, No Frequency, No Incontinence, No Hematuria, No Retention, No Other Musculoskeletal: No: other, neck pain, shoulder pain, arm pain, back pain, hand pain, leg pain, foot pain Skin: No: Rash, Lesions, Jaundice, Bruising, Other Neurological: No: Weakness, Numbness, Incoordination, Change in speech, Confusion, Seizures, Other Allergies: Coded Allergies: NO KNOWN ALLERGIES (Unverified , 12/05/15) Medications Current Medications Medications Dose Ordered Sig/Elliot Route Start Time Stop Time Status Last Admin Dose Admin Sodium Chloride 10 ml Q8HR IV 10/14/25 22:00 Acetaminophen/ Hydrocodone Bitart 1 tab Q4HP PRN PO 10/14/25 16:30 Ondansetron HCl 4 mg Q4HP PRN IV 10/14/25 16:30 Docusate Sodium 100 mg BIDPRN PRN PO 10/14/25 16:30 Acetaminophen 650 mg Q6HP PRN PO 10/14/25 16:30 Morphine Sulfate 2 mg Q4HPRN PRN IV 10/14/25 16:30 Pantoprazole Sodium 40 mg DAILY IV 10/15/25 10:00 Exam Vital Signs Vital Signs Date Time Temp Pulse Resp B/P (MAP) Pulse Ox O2 Delivery O2 Flow Rate FiO2 10/14/25 15:00 98.2 72 17 156/91 (112) 97 98.2 General Appearance: Alert, Oriented X3, Cooperative, No acute distress HEENT: Atraumatic, PERRLA, EOMI, Mucous membr. moist/pink Respiratory: Normal air movement Cardiovascular: Regular rate, Normal S1, Normal S2, No murmurs Abdominal: Normal bowel sounds, Soft, No hepatospenomegaly, No masses, Other (Reports tenderness) Extremities: No clubbing, No cyanosis, No edema, Normal pulses, No tenderness/swelling Skin: No rashes, No significant lesion Neuro: Normal speech, Normal tone, Sensation intact, Cranial nerves 3-12 NL, Reflexes 2+, Other (Generalized weakness) Psych/Mental Status: Mental status NL, Mood NL Labs/Xrays Labs Test 10/14/25 12:19 10/14/25 12:18 Range/Units Urine Color Yellow Yellow Urine Clarity Clear Clear Urine pH 5.5 5.0-9.0 Urine Specific [place] > 1.050 H 1.001-1.035 Urine Protein Trace H Negative Urine Ketones Trace Negative Urine Blood Negative Negative /uL Urine Nitrite Negative Negative Urine Bilirubin Negative Negative Urine Urobilinogen Normal Negative mg/dL Urine Leukocyte Esterase Negative Negative /uL Urine RBC 1 0 - 3 /hpf Urine Microscopic WBC < 1 0-3 /HPF Urine Squamous Epithelial Cells Few <5 /hpf Urine Bacteria None seen None Seen /hpf Urine Mucus Few None Seen Urine Glucose Normal Normal mg/dL White Blood Count 11.0 H 4.4-10.8 10^3/uL Red Blood Count 5.41 4.5-5.90 10^6/uL Hemoglobin 16.1 13.5-17.5 g/dL Hematocrit 48.6 41.0-53.0 % Mean Corpuscular Volume 89.7 80.0-100.0 fL Mean Corpuscular Hemoglobin 29.7 28.0-32.0 pg Mean Corpuscular Hemoglobin Concent 33.1 32.0-36.0 g/dL Red Cell Distribution Width 13.2 11.8-14.3 % Platelet Count 276 140-450 10^3/uL Mean Platelet Volume 7.3 6.9-10.8 fL Neutrophils (%) (Auto) 85.8 H 37.0-80.0 % Lymphocytes (%) (Auto) 10.1 10.0-50.0 % Monocytes (%) (Auto) 3.6 0.0-12.0 % Eosinophils (%) (Auto) 0.2 0.0-7.0 % Basophils (%) (Auto) 0.3 0.0-2.0 % Neutrophils # (Auto) 9.5 H 1.6-8.6 10 ^3/uL Lymphocytes # (Auto) 1.1 0.4-5.4 10 ^3/uL Monocytes # (Auto) 0.4 0-1.3 10 ^3/uL Eosinophils # (Auto) 0 0-0.8 10 ^3/uL Basophils # (Auto) 0 0-0.2 10 ^3/uL Nucleated Red Blood Cells 0.1 % Sodium Level 141 136-145 mmol/L Potassium Level 4.1 3.5-5.1 mmol/L Chloride Level 103 98-107 mmol/L Carbon Dioxide Level 26 20-31 mmol/L Anion Gap 12 5-15 Blood Urea Nitrogen 7 L 9-23 mg/dL Creatinine 0.96 0.700-1.30 mg/dL Glomerular Filtration Rate Calc 89 >90 mL/min BUN/Creatinine Ratio 7.3 L 10.0-20.0 Serum Glucose 151 H 74-106 mg/dL Hemoglobin A1c 5.8 H <5.7 % A1C Calcium Level 10.3 8.7-10.4 mg/dL PATIENT: JEREMI CARRERA ACCT: [id number] UNIT: [id number] : 1965 LOC: ER ROOM / BED: / AGE / SEX: 60 / M ADM STATUS: REG ER SERVICE 1208 ORDERING PHYSICIAN: KELLY REID MD PROCEDURE(s): ABPLIV - CT AB PEL WITH IV CON ONLY REASON: abdominal pain ORDER NUMBER(s): [id number], ACCESSION NUMBER(s): [id number] EXAM: CT CT AB PEL WITH IV CON ONLY History: abdominal pain Comparison Study: None Contrast: Type of contrast: Isovue-300 Contrast injected: 100 mL Contrast wasted: 0 TECHNIQUE: A digital billet worker image was obtained. During the uneventful, intravenous administration of contrast material, multislice data acquisition was obtained through the abdomen and pelvis. The data set was subsequently reconstructed into axial images. Images were reviewed on a work station using a combination of axial and multiplanar using a variety of window levels and settings. Radiation Dose Information: CT Dose: CTDI volume is 13.74 mGy. Dose-length product is 629.08 mGy*cm FINDINGS: Lung Bases: No acute or significant lung base finding. Normal heart size. No pleural or pericardial effusion. Liver: The liver is normal in size. No focal lesions. Normal hepatic vascular enhancement. Gallbladder and Biliary Tree: Unremarkable Spleen: Unremarkable Pancreas: The pancreas is normal in appearance without focal lesions or abnormal enhancement. Adrenal Glands: Unremarkable Kidneys: Kidneys demonstrate normal symmetric enhancement without focal lesions, calculi or hydronephrosis. Bladder: Unremarkable Bowel: The stomach is grossly normal in appearance. Small bowel and colon are normal in caliber and distribution. The appendix is not visualized; however, no secondary findings of acute appendicitis identified. Diverticulosis noted. There appears to be a moderate to large amount of retained stool in the colon. Ascites: Absent Lymphadenopathy: No mesenteric, retroperitoneal or periportal lymphadenopathy. Abdominal Wall and Mesentery: Unremarkable. Vasculature: The visualized abdominal aorta is normal in size and caliber. Abdominal and pelvic vessels demonstrate normal enhancement. Pelvic Organs: Unremarkable Musculoskeletal: There is a partially calcified mild disc protrusion at L4-5. Soft tissues: Unremarkable. IMPRESSION: 1. No acute abnormality in the abdomen or pelvis. 2. Retained stool in the colon. 3. Diverticulosis 4. Partially calcified mild disc protrusion at L4-5 SEPSIS Sepsis Screen Date sepsis recognized/suspect: Oct 14, 2025 Time Sepsis recognized/suspect: 1032 Recent Procedure: No On Antibiotic Therapy: No Respiratory Rate >20: No Heart Rate >90: No Temp<36 C (96.8 F) or >38.3 C: No SBP <90 or MAP <65 mmHG: No New Acute Mental Status Change: No Is the patient on CPAP, BIPAP,: No Physician Orders Ct Ab Pel With Iv Con Only (10/14/25 12:08) Allergies (10/14/25 16:22) Code Status (10/14/25 16:22) Sodium Chloride Lock (Saline Lock Ns) (10/14/25 22:00) Oxygen Per Hour (10/14/25 16:22) Hydrocodone-Acet 5/325mg Tab ([place] 5/32 (10/14/25 16:30) Ondansetron Hcl (Zofran) (10/14/25 16:30) Docusate Sodium Capsule (Colace Capsule) (10/14/25 16:30) Complete Blood Count (10/15/25 04:00) Comprehensive Metabolic Panel (10/15/25 04:00) Condition: Serious (10/14/25 16:22) Acetaminophen Tablet (Tylenol Tablet) (10/14/25 16:30) Clear Liq Diet (10/14/25 Dinner) Bedrest With Bathroom Privileg (10/14/25 16:22) Morphine Sulfate Injection (10/14/25 16:30) Sequential Compression Device (10/14/25 ) Pantoprazole (Protonix) (10/15/25 10:00) Vital Signs Date Time Temp Pulse Resp B/P (MAP) Pulse Ox O2 Delivery O2 Flow Rate FiO2 10/14/25 15:00 98.2 72 17 156/91 (112) 97 98.2 10/14/25 13:12 60 16 160/91 10/14/25 13:00 98.2 60 14 160/91 (114) 98 98.2 10/14/25 10:32 98.3 51 12 168/80 98 98.3 Laboratory Tests Test 10/14/25 12:18 White Blood Count 11.0 10^3/uL (4.4-10.8) H Medications Medications Dose Ordered Sig/Elliot Route Start Time Stop Time Status Last Admin Dose Admin Morphine Sulfate 4 mg ONCE ONCE IV 10/14/25 12:15 10/14/25 12:16 DC 10/14/25 13:12 4 MG Ondansetron HCl 4 mg ONCE ONCE IV 10/14/25 12:15 10/14/25 12:16 DC 10/14/25 13:10 4 MG Sodium Chloride 1,000 ml @ 1,000 mls/hr Q1H ONCE IV 10/14/25 12:15 10/14/25 13:14 DC 10/14/25 13:12 1,000 MLS/HR Assessment/Plan Assessment/Plan Intractable abdominal pain Constipation Hyperglycemia Leukocytosis, unspecified Generalized weakness Plan 1. Admit to med surge unit 2. Breathing treatment 3. Pain control management 4. Management of fluids and electrolytes 5. Consultation for hospitalist 6. Diagnostic tests abdomen/pelvis CT 7. DVT prophylaxis-on SCDs 8. Repeat labs CBC, CMP in a.m. 9. Continue with current medical management 10. Treatment plan discussed with patient and RN. Patient verbalized understanding. Plan discussed with: Patient, Other (RN) My Orders Orders - TORIN ROGERS DNP Procedure Category Date Status Time Allergies AMEE 10/14/25 In Process 16:22 Code Status CODE 10/14/25 Transmitted 16:22 Sodium Chloride Lock PHA 10/14/25 In Process (Saline Lock Ns) 22:00 Oxygen Per Hour RT 10/14/25 Transmitted 16:22 Hydrocodone-Acet PHA 10/14/25 In Process 5/325mg Tab ([place] 16:30 Ondansetron Hcl PHA 10/14/25 In Process (Zofran) 16:30 Docusate Sodium PHA 10/14/25 In Process Capsule (Colace 16:30 Complete Blood Count LAB 10/15/25 Verified 04:00 Comprehensive LAB 10/15/25 Verified Metabolic Panel 04:00 Condition: Serious AMEE 10/14/25 In Process 16:22 Acetaminophen Tablet PHA 10/14/25 In Process (Tylenol Tablet) 16:30 Clear Liq Diet DIET 10/14/25 Transmitted Dinner Bedrest With Bathroom AMEE 10/14/25 In Process Privileg 16:22 Morphine Sulfate [facility] 10/14/25 In Process Injection 16:30 Sequential AMEE 10/14/25 In Process Compression Device Pantoprazole [facility] 10/15/25 In Process (Protonix) 10:00 Problem List: (1) Intractable abdominal pain (2) Constipation (3) Hyperglycemia (4) Leukocytosis, unspecified (5) Generalized weakness Date of Service: Oct 14, 2025 Billing Provider: TORIN ROGERS DNP Common Visit Codes: 91108-[id number] INP/OBS CARE (HIGH) TORIN ROGERS DNP Oct 14, 2025 17:33
[2025-10-14] MEDS ORDERED: NITROGLYCERIN 0.4 MG SL TAB SL PRN (17:45)
[2025-10-14] MEDS ORDERED: MORPHINE SULFATE 4 MG/ML SYR/VIAL IV PRN (18:30)
[2025-10-14 20:09] VITALS: PULSE 78; RESP 20; O2SAT 97
[2025-10-14] MEDS: ONDANSETRON HCL 4 MG/2 ML VIAL IV PRN (20:22)
[2025-10-14] MEDS: MORPHINE SULFATE INJ 2 MG/ml SYRG IV PRN (20:22)
[2025-10-14 21:12] VITALS: BP 134/90; PULSE 68; RESP 19; TEMP 99.8; O2SAT 98
[2025-10-14] MEDS: SODIUM CHLOR 0.9% PF (SALINE LOCK) 10ML VIAL/SYR IV SCH (22:00)
[2025-10-14 22:55] VITALS: BP 134/90; PULSE 68; RESP 19; TEMP 99.8; O2SAT 98
[2025-10-15] VITALS (7 sets, daily range): BP systolic 129–156; BP diastolic 80–96; PULSE 55–66; RESP 17–20; TEMP 36.8; O2SAT 96–100
[2025-10-15] MEDS: MORPHINE SULFATE 4 MG/ML SYR/VIAL IV PRN (00:55)
[2025-10-15] MEDS ORDERED: METH5TAB10 PO (03:43)
[2025-10-15 06:24] LABS: Hematocrit 41.5 % (41.0-53.0); Hemoglobin 14.1 g/dL (13.5-17.5); Mean Corpuscular Hemoglobin 30.5 pg (28.0-32.0); Mean Corpuscular Volume 89.9 fL (80.0-100.0); Nucleated Red Blood Cells % 0.1 %
[2025-10-15 06:37] LABS: Alanine Aminotransferase 24 U/L (7-40); Alkaline Phosphatase 55 U/L (46-116); BUN/Creatinine Ratio 10.4 (10.0-20.0); Calcium 9.3 mg/dL (8.7-10.4); Chloride 104 mmol/L (98-107); Glucose 97 mg/dL (74-106); Potassium 3.9 mmol/L (3.5-5.1); Sodium 141 mmol/L (136-145); Total Protein 6.6 g/dL (5.7-8.2)
[2025-10-15 06:38] LABS: Albumin 4.0 g/dL (3.2-4.8); Bilirubin, Total 0.7 mg/dL (0.2-1.0)
[2025-10-15 06:39] LABS: Blood Urea Nitrogen 8 mg/dL (9-23)
[2025-10-15 06:41] LABS: Anion Gap 10 (5-15); Carbon Dioxide 27 mmol/L (20-31)
[2025-10-15] MEDS: PANTOPRAZOLE 40 MG/10 ML VIAL INJ IV SCH (10:21)
--- NOTE | 2025-10-15 14:29 | DVHPN2 ---
Eyes: No Pain, No Vision change, No Conjunctivae inflammation, No Eyelid inflammation, No Other, No Redness ENT: No Ear pain, No Ear discharge, No Nose pain, No Nose discharge, No Nose congestion, No Mouth pain, No Mouth swelling, No Throat pain, No Throat swelling, No Other Cardiovascular: No Chest Pain, No Palpitations, No Orthopnea, No Paroxysmal Noc. Dyspnea, No Edema, No Lt Headedness, No Other Respiratory: No Cough, No Dry, No Shortness of breath, No SOB with excertion, No Wheezing, No Hemoptysis, No Pleuritic Pain, No Sputum, No Other Gastrointestinal: Nausea, Vomiting, Abdominal Pain; No Diarrhea, No Constipation, No Melena, No Hematochezia, No Other Genitourinary: No Dysuria, No Frequency, No Incontinence, No Hematuria, No Retention, No Other Musculoskeletal: No other, No neck pain, No shoulder pain, No arm pain, No back pain, No hand pain, No leg pain, No foot pain Skin: No Rash, No Lesions, No Jaundice, No Bruising, No Other Objective Vitals Vital Signs Date Time Temp Pulse Resp B/P (MAP) Pulse Ox O2 Delivery O2 Flow Rate FiO2 10/15/25 13:00 98.3 58 20 156/96 (116) 100 98.3 10/15/25 08:00 Room Air* 0 21 Intake/Output Intake and Output 10/15/25 07:00 Intake Total 60 ml Balance 60 ml Intake Oral 60 ml # Voids 2 Medications Current Medications Medications Dose Ordered Sig/Elliot Route Start Time Stop Time Status Last Admin Dose Admin Sodium Chloride 10 ml Q8HR IV 10/14/25 22:00 10/15/25 05:38 10 ML Acetaminophen/ Hydrocodone Bitart 1 tab Q4HP PRN PO 10/14/25 16:30 Ondansetron HCl 4 mg Q4HP PRN IV 10/14/25 16:30 10/15/25 08:18 4 MG Docusate Sodium 100 mg BIDPRN PRN PO 10/14/25 16:30 Acetaminophen 650 mg Q6HP PRN PO 10/14/25 16:30 Pantoprazole Sodium 40 mg DAILY IV 10/15/25 10:00 10/15/25 10:21 40 MG Nitroglycerin 0.4 mg Q5MINP PRN SL 10/14/25 17:45 Morphine Sulfate 2 mg Q30M PRN IV 10/14/25 18:30 Morphine Sulfate 2 mg Q4HPRN PRN IV 10/15/25 00:45 10/15/25 08:19 2 MG Laboratory Results Laboratory Tests 10/15/25 05:00 Chemistry Test 10/15/25 05:00 Albumin 4.0 g/dL (3.2-4.8) Calcium Level 9.3 mg/dL (8.7-10.4) Total Protein 6.6 g/dL (5.7-8.2) LFT Test 10/15/25 05:00 Alanine Aminotransferase (ALT) 24 U/L (7-40) Alkaline Phosphatase 55 U/L (46-116) Aspartate Amino Transferase (AST) 30 U/L (13-40) Total Bilirubin 0.7 mg/dL (0.2-1.0) Urinalysis Test 10/14/25 12:19 Urine Color Yellow (Yellow) Urine Clarity Clear (Clear) Urine pH 5.5 (5.0-9.0) Urine Specific [place] > 1.050 (1.001-1.035) Urine Protein Trace (Negative) H Urine Ketones Trace (Negative) Urine Blood Negative /uL (Negative) Urine Nitrite Negative (Negative) Urine Bilirubin Negative (Negative) Urine Urobilinogen Normal mg/dL (Negative) Urine Leukocyte Esterase Negative /uL (Negative) Urine RBC 1 /hpf (0 - 3) Urine Microscopic WBC < 1 /HPF (0-3) Urine Squamous Epithelial Cells Few /hpf (<5) Urine Bacteria None seen /hpf (None Seen) Urine Mucus Few (None Seen) Urine Glucose Normal mg/dL (Normal) Assessment/Plan Assessment/Plan 10/15: Gastritis versus gastroenteritis which is improving. We will discharge patient on Augmentin 875 b.i.d. for 5 days, full liquid diet/soup diet for 5 days, Protonix 40 daily for 2 weeks, docusate 100 mg twice daily for 2 weeks, increase fiber in diet,. Patient has chronic cough, some wheezing on exam likely COPD, not in exacerbation, we will need to follow up with PCP possibly we will need long-term guaifenesin versus plus-minus Mucomyst, defer to PCP.. We will do care consult patient needs PCP. Date of Service: Oct 15, 2025 Billing Provider: SEAN SUAREZ MD Common Visit Codes: NOT BILLABLE SEAN SUAREZ MD Oct 15, 2025 14:29
[2025-10-15] MEDS ORDERED: DOCU-265 PO (16:25)
[2025-10-15] MEDS ORDERED: AUG875T PO (16:25)
[2025-10-15] MEDS ORDERED: PANT40TA2 PO (16:25)
--- NOTE | 2025-10-15 16:26 | DVHDS2 ---
Discharge Summary Date of Admission Oct 14, 2025 at 17:31 Date of Discharge: Oct 15, 2025 Labs/Diagnostic Data: Laboratory Results Test 10/15/25 05:00 10/14/25 12:19 10/14/25 12:18 White Blood Count 8.3 10^3/uL (4.4-10.8) Red Blood Count 4.62 10^6/uL (4.5-5.90) Hemoglobin 14.1 g/dL (13.5-17.5) Hematocrit 41.5 % (41.0-53.0) Mean Corpuscular Volume 89.9 fL (80.0-100.0) Mean Corpuscular Hemoglobin 30.5 pg (28.0-32.0) Mean Corpuscular Hemoglobin Concent 33.9 g/dL (32.0-36.0) Red Cell Distribution Width 13.1 % (11.8-14.3) Platelet Count 203 10^3/uL (140-450) Mean Platelet Volume 7.7 fL (6.9-10.8) Neutrophils (%) (Auto) 62.9 % (37.0-80.0) Lymphocytes (%) (Auto) 28.5 % (10.0-50.0) Monocytes (%) (Auto) 7.6 % (0.0-12.0) Eosinophils (%) (Auto) 0.7 % (0.0-7.0) Basophils (%) (Auto) 0.3 % (0.0-2.0) Neutrophils # (Auto) 5.2 10 ^3/uL (1.6-8.6) Lymphocytes # (Auto) 2.4 10 ^3/uL (0.4-5.4) Monocytes # (Auto) 0.6 10 ^3/uL (0-1.3) Eosinophils # (Auto) 0.1 10 ^3/uL (0-0.8) Basophils # (Auto) 0 10 ^3/uL (0-0.2) Nucleated Red Blood Cells 0.1 % Sodium Level 141 mmol/L (136-145) Potassium Level 3.9 mmol/L (3.5-5.1) Chloride Level 104 mmol/L (98-107) Carbon Dioxide Level 27 mmol/L (20-31) Anion Gap 10 (5-15) Blood Urea Nitrogen 8 mg/dL (9-23) Creatinine 0.77 mg/dL (0.700-1.30) Glomerular Filtration Rate Calc 101 mL/min (>90) BUN/Creatinine Ratio 10.4 (10.0-20.0) Serum Glucose 97 mg/dL (74-106) Calcium Level 9.3 mg/dL (8.7-10.4) Total Bilirubin 0.7 mg/dL (0.2-1.0) Aspartate Amino Transferase (AST) 30 U/L (13-40) Alanine Aminotransferase (ALT) 24 U/L (7-40) Alkaline Phosphatase 55 U/L (46-116) Total Protein 6.6 g/dL (5.7-8.2) Albumin 4.0 g/dL (3.2-4.8) Urine Color Yellow (Yellow) Urine Clarity Clear (Clear) Urine pH 5.5 (5.0-9.0) Urine Specific [place] > 1.050 (1.001-1.035) Urine Protein Trace (Negative) Urine Ketones Trace (Negative) Urine Blood Negative /uL (Negative) Urine Nitrite Negative (Negative) Urine Bilirubin Negative (Negative) Urine Urobilinogen Normal mg/dL (Negative) Urine Leukocyte Esterase Negative /uL (Negative) Urine RBC 1 /hpf (0 - 3) Urine Microscopic WBC < 1 /HPF (0-3) Urine Squamous Epithelial Cells Few /hpf (<5) Urine Bacteria None seen /hpf (None Seen) Urine Mucus Few (None Seen) Urine Glucose Normal mg/dL (Normal) Hemoglobin A1c 5.8 % A1C (<5.7) Other Laboratory Tests 10/15/25 05:00 Brief Hx & Hospital Course: 60-year-old male with past medical history of hypertension and prediabetes who presented to [facility] ED with complaint of abdominal pain. Patient reports that he has been experiencing diffuse abdominal pain rating 7/10 numeric scale, associated with nausea and vomiting for the past 3 days. Patient reports that he has had similar symptoms in the past and has been admitted for similar complaints. 10/15: Gastritis versus gastroenteritis which is improving. We will discharge patient on Augmentin 875 b.i.d. for 5 days, full liquid diet/soup diet for 5 days, Protonix 40 daily for 2 weeks, docusate 100 mg twice daily for 2 weeks, increase fiber in diet,. Patient has chronic cough, some wheezing on exam likely COPD, not in exacerbation, we will need to follow up with PCP possibly we will need long-term guaifenesin versus plus-minus Mucomyst, defer to PCP.. We will do care consult patient needs PCP. diagnosis: abdominal pain, early diverticulitis possible. Acute gastroenteritis possible, infectious etiology likely diverticulosis, without bleed constipation Calcified mild disc protrusion L4-L5 plan: Augmentin 875 b.i.d. for 5 days, full liquid diet/soup diet for 5 days, Protonix 40 daily for 2 weeks, docusate 100 mg twice daily for 2 weeks, increase fiber in diet Condition at Discharge: Fair Final Diagnosis/Problems List abdominal pain, early diverticulitis possible. Acute gastroenteritis possible, infectious etiology likely diverticulosis, without bleed constipation Calcified mild disc protrusion L4-L5 Discharge Disposition: Home Discharge Instruct/Medications Scheduled Azithromycin (Azithromycin), 1 TAB PO DAILY Levofloxacin Hemihydrate (Levaquin 500 Mg), 1 TAB PO DAILY Methadone Hcl (Methadone Hcl), 49 MG PO DAILY, (Reported) Metronidazole (Flagyl), 1 TAB PO TID Promethazine-Dm (Promethazine Dm 6.25-15 mg/5Ml), 5 ML PO TID Scheduled PRN Ondansetron Odt 4MG Tab (Zofran Po), 4 MG PO QID PRN Miscellaneous Medications Methadone Hcl (Methadone Hcl), 65 MG PO, (Reported) Discharge Statement: "Patient was advised to return to the ER or call 911 if any headaches, dizziness, shortness of breath, chest pain, abdominal pain, bleeding, fevers, or worsening of medical condition. Patient was counseled about treatment plan, medications, possible side effects, patientverbalized understanding. All questions were answered to the best of my ability. This discharge took greater then 30 minutes in planning, reviewing documentation, counseling the patient, and discussing with other team members." ASSESSMENT ASSESSMENT Assessment Date of Service: Oct 15, 2025 Billing Provider: SEAN SUAREZ MD Common Visit Codes: 09087-FFY/[id number] DISCH DAY >30min SEAN SUAREZ MD Oct 15, 2025 16:26
== END 2025-10-15 17:30 | disposition home or self-care (01) | DRG 244 ==
LOC: ER 10:29 → OVERFLOW 17:31 → WEST WING 21:12
PROVIDERS: ADMIT Nurse Practitioner Family; ATTEND Nurse Practitioner Family
DX: K57.32 Diverticulitis of large intestine without perforation or abscess without bleeding (principal); A09 Infectious gastroenteritis and colitis, unspecified; I10 Essential (primary) hypertension; J44.9 Chronic obstructive pulmonary disease, unspecified; K59.00 Constipation, unspecified; R73.9 Hyperglycemia, unspecified; M51.26 Other intervertebral disc displacement, lumbar region; F17.210 Nicotine dependence, cigarettes, uncomplicated; K29.70 Gastritis, unspecified, without bleeding; Z79.2 Long term (current) use of antibiotics; Z79.899 Other long term (current) drug therapy
CPT/HCPCS: 36415; 74177; 80048; 80053; 81001; 83036; 85025; 96361; 96374; 96375; G0378; J2405; J2470